=== PATIENT | female | born 1990 | race Caucasian/White ===

== ENCOUNTER 2019-01-10 16:42 | Emergency (ER) | payer OTHER, SELFPAY ==
--- NOTE | 2019-01-10 18:06 | RAD REPORT ---
EXAM DESCRIPTION: US - OB Limited - 01/10/2019 5:58 pm CLINICAL HISTORY: , pelvic pain COMPARISON: None. FINDINGS: A single cephalic presenting gestation is identified. Limited examination was requested. A natomy is grossly normal and as expected for 18 week gestational age. Heart rate was 130 BPM. measurements are as follows: BPD:4.12 Centimeters 18 weeks 3 days HC:15.31 Centimeters 18 weeks 2 days AC:12.68 Centimeters 18 weeks 2 days HL:2.61 Centimeters 18 weeks 1 day FL:2.66 Centimeters 18 weeks 1 day The estimated gestational age (EGA) is 18 weeks 2 days with an ALDEN of 06/11/2019. ratios are n ormal or within acceptable limits. The placenta is grade 0, anterior in location. No low-lying or monroe centa previa. The amniotic fluid volume is normal. Neither ovary was identifiable. No adnexal mass identifiable. IMPRESSION: 1. Single cephalic gestation with an EGA of 18 weeks 2 days and an ALDEN of the 06/11/2019 . 2. No abnormalities are identifiable. Limited OB examination was requested. Anatomy is as expec akosua for 18 weeks age. 3. Grade 0, anterior placenta with no low-lying or placenta previa. 4. Amniotic fluid volume is normal.
--- NOTE | 2019-01-10 18:18 | EDPHYS ---
Physician Documentation [facility] Name: Maryellen Mooney Age: 28 yrs Sex: Female : 1990 Arrival Date: 01/10/2019 Time: 16:46 Bed 15 Private MD: ED Physician Andrew De La Garza HPI: 01/10 18:16 This 28 yrs old Female presents to ER via Ambulatory with complaints of 18 snw wks , Abdominal Pain. 18:16 The patient presents with abdominal pain in the left upper quadrant. Onset: The snw symptoms/episode began/occurred gradually, 2 week(s) ago, and became persistent. The symptoms do not radiate. Associated signs and symptoms: none. The symptoms are described as constant. Severity of pain: At its worst the pain was moderate. It is unknown whether or not the patient has had similar symptoms in the past. + care, no vaginal bleeding. 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 - Social history:: Smoking status: Patient uses tobacco products, smokes one-half pack cigarettes per day. - Ebola Screening: : No symptoms or risks identified at this time. ROS: 18:15 Constitutional: Negative for fever, chills, and weight loss, Eyes: Negative for injury, snw pain, redness, and discharge, ENT: Negative for injury, pain, and discharge, Neck: Negative for injury, pain, and swelling, Cardiovascular: Negative for chest pain, palpitations, and edema, Respiratory: Negative for shortness of breath, cough, wheezing, and pleuritic chest pain, Back: Negative for injury and pain, : Negative for injury, bleeding, discharge, and swelling, MS/Extremity: Negative for injury and deformity, Skin: Negative for injury, rash, and discoloration, Neuro: Negative for headache, weakness, numbness, tingling, and seizure. 18:15 Abdomen/GI: Positive for abdominal pain, of the left upper quadrant. Exam: 18:15 Constitutional: This is a well developed, well nourished patient who is awake, alert, snw and in no acute distress. Head/Face: Normocephalic, atraumatic. Eyes: Pupils equal round and reactive to light, extra-ocular motions intact. Lids and lashes normal. Conjunctiva and sclera are non-icteric and not injected. Cornea within normal limits. Periorbital areas with no swelling, redness, or edema. ENT: Nares patent. No nasal discharge, no septal abnormalities noted. Tympanic membranes are normal and external auditory canals are clear. Oropharynx with no redness, swelling, or masses, exudates, or evidence of obstruction, uvula midline. Mucous membranes moist. Neck: Trachea midline, no thyromegaly or masses palpated, and no cervical lymphadenopathy. Supple, full range of motion without nuchal rigidity, or vertebral point tenderness. No Meningismus. Chest/axilla: Normal chest wall appearance and motion. Nontender with no deformity. No lesions are appreciated. Cardiovascular: Regular rate and rhythm with a normal S1 and S2. No gallops, murmurs, or rubs. Normal PMI, no JVD. No pulse deficits. Respiratory: Lungs have equal breath sounds bilaterally, clear to auscultation and percussion. No rales, rhonchi or wheezes noted. No increased work of breathing, no retractions or nasal flaring. Back: No spinal tenderness. No costovertebral tenderness. Full range of motion. Skin: Warm, dry with normal turgor. Normal color with no rashes, no lesions, and no evidence of cellulitis. MS/ Extremity: Pulses equal, no cyanosis. Neurovascular intact. Full, normal range of motion. Neuro: Awake and alert, GCS 15, oriented to person, place, time, and situation. Cranial nerves II-XII grossly intact. Motor strength 5/5 in all extremities. Sensory grossly intact. Cerebellar exam normal. Normal gait. 18:15 Abdomen/GI: Inspection: gravid appearance, is noted, Bowel sounds: normal, Palpation: mild abdominal tenderness, in the left upper quadrant, no appreciated organomegaly. Vital Signs: 16:57 BP 115 / 77; Pulse 88; Resp 16; Pulse Ox 97% on R/A; dh3 16:58 Weight 81.65 kg (R); Height 5 ft. 1 in. (154.94 cm) (R); Pain 7/10; aa5 18:00 BP 114 / 75; Pulse 88; Resp 16 S; Pulse Ox 97% on R/A; jl7 16:58 Body Mass Index 34.01 (81.65 kg, 154.94 cm) aa5 MDM: 17:12 Patient medically screened. marcio 01/11 00:55 Data reviewed: vital signs, nurses notes, radiologic studies, ultrasound. Data snw interpreted: telemetry monitor: Pulse oximetry:. Counseling: I had a detailed discussion with the patient and/or guardian regarding: the historical points, exam findings, and any diagnostic results supporting the discharge/admit diagnosis, the need for outpatient follow up, to return to the emergency department if symptoms worsen or persist or if there are any questions or concerns that arise at home. Special discussion: Based on the patient's Hx, exam, and Dx evaluation, there is no indication for emergent surgery or inpatient Tx. It is understood by the patient/guardian that if the Sx's persist or worsen they need to return immediately for re-evaluation. Based on the history and exam findings, there is no indication for further emergent testing or inpatient evaluation. I discussed with the patient/guardian the need to see the OB Gyne specialist for further evaluation of the symptoms. Medical screen evaluation completed. EMTALA emergency medical condition absent. 01/10 18:34 Order name: Urine Dipstick--Ancillary (enter results) bd 01/10 17:15 Order name: OB Limited; Complete Time: 18:10 snw Administered Medications: No medications were administered Disposition: 01/10/19 18:17 Discharged to Home. Impression: Upper abdominal pain, unspecified. - Condition is Stable. - Discharge Instructions: Abdominal Pain During , Colic, and Smoking, Second Trimester of , Empw-ii-Wxfy, Eating Plan for Women. - Prescriptions for Vitamin 27- 0.8 mg Oral Tablet - take 1 tablet by ORAL route once daily; 60 tablet. - Medication Reconciliation Form, Thank You Letter, Antibiotic Education, Prescription Opioid Use form. - Follow up: Private Physician; When: 2 - 3 days; Reason: Recheck today's complaints, Continuance of care, Re-evaluation by your physician. Follow up: Emergency Department; When: As needed; Reason: Worsening of condition. Signatures: Dispatcher [employer] Andrew Valdes MD MD cha Therrien, Shelly, CHEST PAINTING AND SEALING SUPERVISOR-C CHEST PAINTING AND SEALING SUPERVISOR-Csnw Julieta Montalvo, RN RN aa5 Dulce Toney RN RN jl7 Corrections: (The following items were deleted from the chart) 01/10 18:39 18:17 01/10/2019 18:17 Discharged to Home. Impression: Upper abdominal pain, jl7 unspecified. Condition is Stable. Forms are Medication Reconciliation Form, Thank You Letter, Antibiotic Education, Prescription Opioid Use. Follow up: Private Physician; When: 2 - 3 days; Reason: Recheck today's complaints, Continuance of care, Re-evaluation by your physician. Follow up: Emergency Department; When: As needed; Reason: Worsening of condition. snw
--- NOTE | 2019-01-10 18:18 | ER ---
Nurse's Notes [facility] Name: Maryellen Mooney Age: 28 yrs Sex: Female : 1990 Arrival Date: 01/10/2019 Time: 16:46 Bed 15 Private MD: Diagnosis: Upper abdominal pain, unspecified Presentation: 01/10 16:55 Presenting complaint: Patient states: LUQ pain that began 2 weeks ago, nausea, denies aa5 vomiting, denies vaginal bleeding. Reports being 18 weeks . 16:55 Transition of care: patient was not received from another setting of care. Onset of aa5 symptoms was December 2018. Risk Assessment: Do you want to hurt yourself or someone else? Patient reports no desire to harm self or others. Care prior to arrival: None. 16:55 Method Of Arrival: Ambulatory aa5 16:55 Acuity: HOMERO 3 aa5 17:57 Initial Sepsis Screen: Does the patient meet any 2 criteria? No. Patient's initial jl7 sepsis screen is negative. Does the patient have a suspected source of infection? No. Patient's initial sepsis screen is negative. 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 - Social history:: Smoking status: Patient uses tobacco products, smokes one-half pack cigarettes per day. - Ebola Screening: : No symptoms or risks identified at this time. Screenin:00 Abuse screen: Denies threats or abuse. Denies injuries from another. Nutritional jl7 screening: No deficits noted. Tuberculosis screening: No symptoms or risk factors identified. Fall Risk None identified. Assessment: 17:00 General: Appears in no apparent distress. uncomfortable, Behavior is calm, cooperative, jl7 appropriate for age. Pain: Complains of pain in left upper quadrant Pain currently is 7 out of 10 on a pain scale. Neuro: Level of Consciousness is awake, alert, obeys commands, Oriented to person, place, time, situation. Cardiovascular: Patient's skin is warm and dry. Respiratory: Airway is patent Respiratory effort is even, unlabored, Respiratory pattern is regular, symmetrical. GI: Bowel sounds present X 4 quads. Abd is soft and non tender. : Urine is cloudy, Denies burning with urination. EENT: No signs and/or symptoms were reported regarding the EENT system. Derm: Skin is pink, warm \T\ dry. Musculoskeletal: No signs and/or symptoms reported regarding the musculoskeletal system. 18:00 Reassessment: Patient appears in no apparent distress at this time. Patient and/or jl7 family updated on plan of care and expected duration. Pain level reassessed. Patient is alert, oriented x 3, equal unlabored respirations, skin warm/dry/pink. Vital Signs: 16:57 BP 115 / 77; Pulse 88; Resp 16; Pulse Ox 97% on R/A; dh3 16:58 Weight 81.65 kg (R); Height 5 ft. 1 in. (154.94 cm) (R); Pain 7/10; aa5 18:00 BP 114 / 75; Pulse 88; Resp 16 S; Pulse Ox 97% on R/A; jl7 16:58 Body Mass Index 34.01 (81.65 kg, 154.94 cm) aa5 ED Course: 16:46 Patient arrived in ED. mr 16:52 Arm band placed on Patient placed in an exam room, on a stretcher. aa5 16:53 Clare [facility] F[facility]-C [facility]. snw 16:53 Andrew De La Garza MD is Attending Physician. snw 16:57 Dulce Toney RN is Primary Nurse. jl7 16:57 Triage completed. aa5 17:00 Patient has correct armband on for positive identification. Bed in low position. Call jl7 light in reach. Side rails up X 1. 17:17 Patient taken to ultrasound. via wheelchair. junior 17:30 Patient moved back from ultrasound. junior 17:58 US OB Limited In Process Unspecified. EDMS 18:30 Urine collected: clean catch specimen, cloudy. dh3 18:38 No provider procedures requiring assistance completed. Patient did not have IV access jl during this emergency room visit. Administered Medications: No medications were administered Outcome: 18:17 Discharge ordered by . snw 18:38 Discharged to home ambulatory. jl7 18:38 Condition: stable 18:38 Discharge instructions given to patient, family, Instructed on discharge instructions, follow up and referral plans. medication usage, Demonstrated understanding of instructions, follow-up care, medications, Prescriptions given X 1. 18:39 Patient left the ED. jl7 Signatures: Dispatcher [employer] EDMS Clare Ward, RADHA-C FISH AGENT-Rj SilveraDenise mr MontalvoJulieta, RN RN aa5 aKle Dunbar jd, Jahala, RN RN jl7 Vanessa Hinojosa [facility]
[2019-01-10 18:45] VITALS: O2SAT 97
[2019-01-10 18:47] VITALS: BP 114/75
[2019-01-10 20:30] LABS: Urine Blood NEGATIVE (NEG); Urine Glucose NEGATIVE (NEG); Urine Protein NEGATIVE (NEG); Urine pH 6.5 (5.0-7.0)
== END 2019-01-10 18:39 | disposition home or self-care (01) ==
LOC: ER 16:42
DX: O26.892 Other specified pregnancy related conditions, second trimester (principal); O99.332 Smoking (tobacco) complicating pregnancy, second trimester; F17.210 Nicotine dependence, cigarettes, uncomplicated; Z3A.18 18 weeks gestation of pregnancy; Z91.02 Food additives allergy status; Z91.030 Bee allergy status
CPT/HCPCS: 76815; 81003; 99284

== ENCOUNTER 2019-03-01 15:56 | Emergency (ER) | payer OTHER ==
--- OUTSIDE RECORDS SUMMARY | 2019-03-01 15:58 | XMS REPORT ---
:1990 [facility] [address] [place] [address] Care Team Providers Name Role Phone Unavailable Unavailable Unavailable Payers Payer Name Policy Type Policy Number Effective Date Expiration Date Problems This patient has no known problems. Allergies, Adverse Reactions, Alerts This patient has no known allergies or adverse reactions. Medications This patient has no known medications. Results Test Description Test Time Test Comments Text Results Atomic Results Result Comments - US 2019-01-21 Patient Name: UMU KNOWLES Unit No: [id number] PREG 09:37:00 EXAMS: CPT CODE: AFTER [id number] PREG AFTER 1ST [facility] [address] [place] [address]'[facility] [address] [place], [place] [address] OBSTETRICAL ULTRASOUND REPORT Pat. Name: UMU KNOWLES Pat. No: [id number] Study Date: 01/21/2019 8:05am , Age: 11 1990, 28 Pregnancies: 2, Para 1 LMP: 09/07/2018 GA by LMP: 19w3d GA by US: 19w5d GA Selected: 19w5d (From Known E) ALDEN: 06/12/2019 Referring MD: Tavares Subramanian Tinsmith Helper: Rosemarie Cosme RDMS CPT4: [id number] Admitting MD: MARILYNN CHAPIN Hist/Ind: Scan 1: Anatomy MEASUREMENTS AGE GROWTH EVALUATION Measurement GA Range Srce %for GA Ratios ----- ---- ------- BPD 4.8 cm 20w4d (79r6r-87r4h) Hadl BPD 74% FL/BPD 0.67 HC 17.4 cm 19w6d (17a0r-21w6s) Hadl HC 53% FL/AC 0.23 APD 4.3 cm APD HC/AC 1.24 (1.06 - 1.25) TAD 4.6 cm TAD CI 0.83 (0.70 - 0.86) AC 14.0 cm 19w0d (65m2v-37b4v) Hadl AC 35% FL 3.2 cm 19w4d (09e6q-85c7q) Hadl FL 47% HL 3.4 cm 21w4d (41x9m-91n1u) Waldo HL 81% GA for sonogram 19w5d (03w6u-04g3x) Weight Estimate: based on (BPD,HC,AC,FL) Hadlock Weight: 308 gm (263-353) Hadlock : 0lbs, 10oz Cervical Length: 3.1 cm Heart Rate: 142 bpm MATERNAL ANATOMY Ovaries LxHxW (cm) Right 2.1 x 1.3 x 1.4 Vol: 2.0cc Left 2.1 x 1.3 x 2.3 Vol: 3.3cc CLINICAL SUMMARY Type of Gestation: Amaro Intrauterine in variable presentation. size is appropriate for gestational age by weight. motion and organs seen: heart motion seen somatic activity observed body and limb movements seen Four chamber heart observed Left ventricular outflow tract (LVOT) seen Right ventricular outflow tract (RVOT) seen [facility] NAME: UMU KNOWLES Radiology Department PHYS: Marilynn Jha DO [address] : 1990 AGE: 28 SEX: F [place], [place] [address] LOC: DaryRAD PHONE #: [phone] EXAM DATE: 01/21/2019 STATUS: REG CLI FAX #: [phone] RAD NO: Page 1 Signed Report (CONTINUED) Patient Name: ELENIUMU Unit No: [id number] EXAMS: CPT CODE: [id number] US PREG AFTER TRI [id number] <Continued> Normal intracranial anatomy seen Umbilical cord insertion in fetus seen stomach, Renal Fossa, Bladder and Spine seen Three vessel umbilical cord noted abnormalities observed: None seen at this exam Placental location: Anterior Placental maturity : Grade 1 There is no evidence of placenta previa. Amniotic fluid volume is normal. Uterus and adnexa: No significant abnormalities seen Thank you for allowing us to participate in the care of this patient. Satish Xiao M.D. Electronic Signature 01/21/2019 09:37am at 0937 Reported and signed by: Satish Xiao MD CC: Marilynn Chapin DO Technologist: Rosemarie Cosme RDMS Probe: Trnscrbd D/ ([id number]) [email or web address] Orig Print D/T: S: 01/21/2019 (936) [facility] NAME: KNOWLESUMU Radiology Department PHYS: MARY LOUALTAGRACIA Ford TavaresMarilynn olguin DO [address] : 1990 AGE: 28 SEX: F [place] [address] LOC: DaryRAD PHONE #: [phone] EXAM DATE: 01/21/2019 STATUS: REG CLI FAX #: [phone] RAD NO: Page 2 Signed Report Patient Name: UMU KNOWLES Unit No: [id number] EXAMS: CPT CODE: [id number] US PREG AFTER 1ST TRI [id number] <Continued> [facility] NAME: UMU KNOWLES Radiology Department PHYS: Marilynn Jha DO [address] : 1990 AGE: 28 SEX: F [place] [address] LOC: DaryRAD PHONE #: [phone] EXAM DATE: 01/21/2019 STATUS: REG CLI FAX #: [phone] RAD NO: Page 3 Signed Report
[2019-03-01] MEDS ORDERED: ALBUTEROL 2.5 MG/3 ML NEB SOL ONE (17:10)
--- NOTE | 2019-03-01 17:35 | EDPHYS ---
Physician Documentation [facility] Name: Maryellen Mooney Age: 28 yrs Sex: Female : 1990 Arrival Date: 03/01/2019 Time: 16:00 Bed 12 Private MD: None, None ED Physician Andrew De La Garza HPI: 03/01 17:09 This 28 yrs old Female presents to ER via Ambulatory with complaints of kb Cough, Chest Congestion. 17:09 The patient or guardian reports cough, that is intermittent, described as moderate, kb with no sputum. Onset: The symptoms/episode began/occurred 1 month(s) ago, and became worse. Severity of symptoms: At their worst the symptoms were moderate, in the emergency department the symptoms are unchanged. Modifying factors: The symptoms are alleviated by nothing, the symptoms are aggravated by nothing. Associated signs and symptoms: The patient has no apparent associated signs or symptoms. The patient has experienced similar episodes in the past, a few times. The patient has not recently seen a physician. Pt reports cough for a month and congestion that has been getting worse. . Historical: - Allergies: 16:03 Bees; sv 16:03 Red Dye; sv - PMHx: 16:03 Asthma; Bipolar disorder; sv - PSHx: 16:03 ; sv - Immunization history:: Adult Immunizations up to date. - Social history:: Smoking status: Patient/guardian denies using tobacco. - Ebola Screening: : Patient denies travel to an Ebola-affected area in the 21 days before illness onset. ROS: 17:04 Constitutional: Negative for fever, chills, and weight loss, Cardiovascular: Negative kb for chest pain, palpitations, and edema, Abdomen/GI: Negative for abdominal pain, nausea, vomiting, diarrhea, and constipation, Back: Negative for injury and pain, MS/Extremity: Negative for injury and deformity, Skin: Negative for injury, rash, and discoloration, Neuro: Negative for headache, weakness, numbness, tingling, and seizure. 17:04 ENT: Positive for sinus congestion. 17:04 Respiratory: Positive for cough, wheezing, Negative for dyspnea on exertion, hemoptysis, orthopnea, pleurisy, shortness of breath. Exam: 17:04 Constitutional: This is a well developed, well nourished patient who is awake, alert, kb and in no acute distress. Head/Face: Normocephalic, atraumatic. Chest/axilla: Normal chest wall appearance and motion. Nontender with no deformity. No lesions are appreciated. Cardiovascular: Regular rate and rhythm with a normal S1 and S2. No gallops, murmurs, or rubs. Normal PMI, no JVD. No pulse deficits. Abdomen/GI: Soft, non-tender, with normal bowel sounds. No distension or tympany. No guarding or rebound. No evidence of tenderness throughout. Back: No spinal tenderness. No costovertebral tenderness. Full range of motion. Skin: Warm, dry with normal turgor. Normal color with no rashes, no lesions, and no evidence of cellulitis. MS/ Extremity: Pulses equal, no cyanosis. Neurovascular intact. Full, normal range of motion. Neuro: Awake and alert, GCS 15, oriented to person, place, time, and situation. Cranial nerves II-XII grossly intact. Motor strength 5/5 in all extremities. Sensory grossly intact. Cerebellar exam normal. Normal gait. 17:04 Respiratory: the patient does not display signs of respiratory distress, Respirations: normal, Breath sounds: wheezing: expiratory that is moderate, is scattered. Vital Signs: 16:03 BP 133 / 79; Pulse 96; Resp 18; Temp 98.4(O); Pulse Ox 97% ; Weight 84.82 kg; Height 5 sv ft. 1 in. (154.94 cm); 16:03 Body Mass Index 35.33 (84.82 kg, 154.94 cm) sv MDM: 16:46 Patient medically screened. kb 17:09 Data reviewed: vital signs, nurses notes. Data interpreted: Pulse oximetry: on room air kb is 97 %. Interpretation: normal. 17:33 Counseling: I had a detailed discussion with the patient and/or guardian regarding: the kb historical points, exam findings, and any diagnostic results supporting the discharge/admit diagnosis, lab results, radiology results, the need for outpatient follow up, a family practitioner, to return to the emergency department if symptoms worsen or persist or if there are any questions or concerns that arise at home. ED course: Lungs clear bilaterally after treatment. 03/01 17:03 Order name: Urine Dipstick--Ancillary (enter results) 03/01 17:04 Order name: Urine Dipstick-Ancillary EDMS 03/01 16:49 Order name: Chest Pa And Lat (2 Views) XRAY kb 03/01 16:49 Order name: Urine Dipstick-Ancillary (obtain specimen); Complete Time: 17:07 kb Administered Medications: 17:01 Drug: Albuterol 2.5 mg Route: Inhalation; aj1 Disposition: 03/02 06:43 Co-signature as Attending Physician, Andrew De La Garza MD I agree with the assessment and [facility] plan of care. Disposition: 03/01/19 17:34 Discharged to Home. Impression: Bronchitis, not specified as acute or chronic, Asthma. - Condition is Stable. - Discharge Instructions: Acute Bronchitis, Girl-od-Bcak, Asthma, Adult, Aagx-gc-Imyq. - Prescriptions for Zithromax Z- Leonardo 250 mg Oral Tablet - take 1 tablet by ORAL route as directed for 5 days Day 1 - take two (2) tablets one time. Day 2, 3, 4 , 5 take one (1) tablet once daily.; 6 tablet. Albuterol Sulfate 90 mcg/actuation - inhale 1-2 puff by INHALATION route every 4-6 hours; 1 Inhaler. - Medication Reconciliation Form, Thank You Letter, Antibiotic Education, Prescription Opioid Use form. - Follow up: Emergency Department; When: As needed; Reason: Worsening of condition. Follow up: Private Physician; When: 2 - 3 days; Reason: Recheck today's complaints, Continuance of care, Re-evaluation by your physician. Signatures: Dispatcher [employer] [facility] Helene Dinero, TECHNICAL SUPPORT SPECIALIST-C TECHNICAL SUPPORT SPECIALIST-Luz Velez RN RN aj1 Edie Farmer RN RN sv Anderson, Corey, MD MD [facility] Corrections: (The following items were deleted from the chart) 03/01 18:04 17:34 03/01/2019 17:34 Discharged to Home. Impression: Bronchitis, not specified as aj1 acute or chronic; Asthma. Condition is Stable. Forms are Medication Reconciliation Form, Thank You Letter, Antibiotic Education, Prescription Opioid Use. Follow up: Emergency Department; When: As needed; Reason: Worsening of condition. Follow up: Private Physician; When: 2 - 3 days; Reason: Recheck today's complaints, Continuance of care, Re-evaluation by your physician. kb
--- NOTE | 2019-03-01 17:35 | ER ---
Nurse's Notes [facility] [place] Name: Maryellen Mooney Age: 28 yrs Sex: Female : 1990 Arrival Date: 03/01/2019 Time: 16:00 Bed 12 Private MD: None, None Diagnosis: Bronchitis, not specified as acute or chronic;Asthma Presentation: 03/01 16:02 Presenting complaint: Patient states: cough x 1 month, congestion started yesterday. Pt sv is 25 wks . Transition of care: patient was not received from another setting of care. Onset of symptoms was January 2019. Care prior to arrival: None. 16:02 Method Of Arrival: Ambulatory sv 16:02 Acuity: HOMERO 4 sv 18:04 Risk Assessment: Do you want to hurt yourself or someone else? Patient reports no aj1 desire to harm self or others. Initial Sepsis Screen: Does the patient meet any 2 criteria? No. Patient's initial sepsis screen is negative. Does the patient have a suspected source of infection? No. Patient's initial sepsis screen is negative. Triage Assessment: 16:04 General: Appears in no apparent distress. uncomfortable, well developed, Behavior is sv calm, cooperative, appropriate for age. Neuro: Level of Consciousness is awake, alert, obeys commands, Oriented to person, place, time, situation, Gait is steady. Respiratory: Reports cough that is non-productive, congestion Respiratory effort is even, unlabored, Respiratory pattern is regular, symmetrical. Historical: - Allergies: 16:03 Bees; sv 16:03 Red Dye; sv - PMHx: 16:03 Asthma; Bipolar disorder; sv - PSHx: 16:03 ; sv - Immunization history:: Adult Immunizations up to date. - Social history:: Smoking status: Patient/guardian denies using tobacco. - Ebola Screening: : Patient denies travel to an Ebola-affected area in the 21 days before illness onset. Screenin:10 Abuse screen: Denies threats or abuse. Denies injuries from another. Nutritional aj1 screening: No deficits noted. Tuberculosis screening: No symptoms or risk factors identified. 18:03 Fall Risk None identified. aj1 Assessment: 17:10 General: Appears in no apparent distress. uncomfortable, Behavior is calm, cooperative, aj1 appropriate for age. Pain: Complains of pain in right lateral posterior chest Pain does not radiate. Pain currently is 6 out of 10 on a pain scale. at worst was 8 out of 10 on a pain scale. Quality of pain is described as aching, Aggravated by increased activity. Neuro: Level of Consciousness is awake, alert, obeys commands, Oriented to person, place, time, situation. Cardiovascular: Patient's skin is warm and dry. Respiratory: Reports cough that is persistent Airway is patent Respiratory effort is even, unlabored, Respiratory pattern is regular, symmetrical. GI: No signs and/or symptoms were reported involving the gastrointestinal system. : No signs and/or symptoms were reported regarding the genitourinary system. EENT: Reports nasal congestion nasal discharge. Derm: No signs and/or symptoms reported regarding the dermatologic system. Skin is normal. Musculoskeletal: No signs and/or symptoms reported regarding the musculoskeletal system. Circulation, motion, and sensation intact. 18:03 Reassessment: Patient appears in no apparent distress at this time. No changes from aj1 previously documented assessment. Patient and/or family updated on plan of care and expected duration. Pain level reassessed. Patient is alert, oriented x 3, equal unlabored respirations, skin warm/dry/pink. Vital Signs: 16:03 BP 133 / 79; Pulse 96; Resp 18; Temp 98.4(O); Pulse Ox 97% ; Weight 84.82 kg; Height 5 sv ft. 1 in. (154.94 cm); 16:03 Body Mass Index 35.33 (84.82 kg, 154.94 cm) sv ED Course: 16:00 Patient arrived in ED. dl4 16:00 None, None is Private Physician. dl4 16:03 Triage completed. sv 16:04 Arm band placed on. sv 16:45 Helene Dinero FNP-C is PHCP. kb 16:45 Andrew De La Garza MD is Attending Physician. kb 16:52 Luz Morgan, MARCOS is Primary Nurse. aj1 17:10 Patient has correct armband on for positive identification. Bed in low position. Call aj1 light in reach. Side rails up X 1. 17:10 No provider procedures requiring assistance completed. aj1 17:12 Urine Dipstick--Ancillary (enter results) Sent. sv 17:26 X-ray completed. Patient tolerated procedure well. Patient moved back from radiology. ls3 17:34 Chest Pa And Lat (2 Views) XRAY In Process Unspecified. EDMS 18:04 Patient did not have IV access during this emergency room visit. aj1 Administered Medications: 17:01 Drug: Albuterol 2.5 mg Route: Inhalation; aj1 Outcome: 17:34 Discharge ordered by . kb 18:04 Discharged to home ambulatory. aj1 18:04 Condition: good 18:04 Discharge instructions given to patient, Instructed on discharge instructions, follow up and referral plans. medication usage, Demonstrated understanding of instructions, follow-up care, medications, Prescriptions given X 2. 18:04 Patient left the ED. aj1 Signatures: Dispatcher [employer] EDNC Helene Dinero, RADHA-C SWITCHBOARD OPERATOR-Luz Velez RN RN aj1 Edie Farmer, MARCOS RN Andria Noguera ls3 Michael Atkins dl4
--- NOTE | 2019-03-01 17:39 | RAD REPORT ---
EXAM DESCRIPTION: RAD - Chest Pa And Lat (2 Views) - 03/01/2019 5:34 pm CLINICAL HISTORY: r/o pneumonia, shield pt;Cough Chest pain. COMPARISON: CHEST SINGLE VIEW dated 01/05/2016; CHEST PA AND LAT 2 VIEW dated 03/14/2010 FINDINGS: The lungs are clear. The heart is normal in size. No displaced fractures. IMPRESSION: No acute or concerning finding suspected.
[2019-03-01 18:24] VITALS: BP 133/79; TEMP 98.4; O2SAT 97
[2019-03-01 18:46] LABS: Urine Blood TRACE (NEG); Urine Glucose NEGATIVE (NEG); Urine Protein NEGATIVE (NEG); Urine pH 6.5 (5.0-7.0)
== END 2019-03-01 18:04 | disposition home or self-care (01) ==
LOC: ER 15:56
DX: J40 Bronchitis, not specified as acute or chronic (principal); J45.909 Unspecified asthma, uncomplicated; Z91.02 Food additives allergy status; Z91.030 Bee allergy status
CPT/HCPCS: 71046; 81003; 99284

== ENCOUNTER 2019-03-13 12:09 | Emergency (ER) | payer OTHER ==
--- OUTSIDE RECORDS SUMMARY | 2019-03-13 12:11 | XMS REPORT ---
:1990 [facility] Address [address] [place] [address] Care Team Providers Name Role Phone Unavailable [...] 2019-01-21 Patient Name: UMU KNOWLES Unit No: [id number] PREG 09:37:00 EXAMS: CPT CODE: AFTER [id number] PREG AFTER 1ST TRI [address] [place] [address]'[facility] TRI [address] [place], [place] [address] OBSTETRICAL ULTRASOUND REPORT Pat. Name: UMU KNOWLES Pat. No: [id number] Study Date: 01/21/2019 8:05am , Age: 11 1990, 28 Pregnancies: 2, Para 1 LMP: 09/07/2018 GA by LMP: 19w3d GA by US: 19w5d GA Selected: 19w5d (From Known E) ALDEN: 06/12/2019 Referring MD: Tavares Subramanian Residential Property Tax Appraiser: Rosemarie Cosme RDMS CPT4: [id number] Admitting MD: MARILYNN CHAPIN Hist/Ind: Scan 1: Anatomy MEASUREMENTS AGE GROWTH EVALUATION Measurement GA Range Srce %for GA Ratios ----- ---- ------- BPD 4.8 cm 20w4d (75c3x-86h0c) Hadl BPD 74% FL/BPD 0.67 HC 17.4 cm 19w6d (22p9j-49o7m) Hadl HC 53% FL/AC 0.23 APD 4.3 cm APD HC/AC 1.24 (1.06 - 1.25) TAD 4.6 cm TAD CI 0.83 (0.70 - 0.86) AC 14.0 cm 19w0d (20s2w-26o7l) Hadl AC 35% FL 3.2 cm 19w4d (02o7c-84x2v) Hadl FL 47% HL 3.4 cm 21w4d (24r0h-30k3k) Waldo HL 81% GA for sonogram 19w5d (51s3l-95g5q) Weight Estimate: based on (BPD,HC,AC,FL) Hadlock Weight: [...] Right ventricular outflow tract (RVOT) seen [facility] NAME: UMU KNOWLES Radiology Department PHYS: ATIYA ForbesmanMarilynn DO [address] : 1990 AGE: 28 SEX: [place], [place] [address] LOC: DaryRAD PHONE #: [phone] EXAM DATE: 01/21/2019 STATUS: REG CLI FAX #: [phone] RAD NO: Page 1 Signed Report (CONTINUED) Patient Name: UMU KNOWLES Unit No: [id number] EXAMS: CPT CODE: [id number] US PREG AFTER TRI 54685 <Continued> Normal intracranial anatomy seen Umbilical cord [...] (936) [email or web address] Orig Print D/T: S: 01/21/2019 (37) [facility] NAME: KNOWLESUMU Radiology Department PHYS: Marilynn Jha DO [address] : 1990 AGE: 28 SEX: F [place] [address] LOC: DaryRAD PHONE #: [phone] EXAM DATE: 01/21/2019 STATUS: REG CLI FAX #: [phone] RAD NO: Page 2 Signed Report Patient Name: UMU KNOWLES Unit No: [id number] EXAMS: CPT CODE: [id number] US PREG AFTER TRI 40141 <Continued> [facility] NAME: UMU KNOWLES Radiology Department PHYS: Marilynn Jha DO [address] : 1990 AGE: 28 SEX: F [place] [address] LOC: Dary[facility] PHONE #: [phone] EXAM DATE: 01/21/2019 STATUS: REG CLI FAX #: [phone] RAD NO: Page 3 Signed Report
[2019-03-13] MEDS ORDERED: IPRATROPIUM BROM 0.5MG/2.5ML ONE (13:01)
[2019-03-13] MEDS ORDERED: ALBUTEROL 2.5 MG/3 ML NEB SOL ONE (13:01)
--- NOTE | 2019-03-13 13:51 | RAD REPORT ---
EXAM DESCRIPTION: RAD - Chest Pa And Lat (2 Views) - 03/13/2019 1:29 pm CLINICAL HISTORY: shield pt;Chest pain Chest pain. COMPARISON: Chest Pa And Lat (2 Views) dated 03/01/2019; CHEST SINGLE VIEW dated 01/05/2016; CHEST PA AND LAT 2 VIEW dated 03/14/2010 FINDINGS: The lungs are clear. The heart is normal in size. No displaced fractures. IMPRESSION: No acute or concerning finding suspected.
--- NOTE | 2019-03-13 13:58 | EDPHYS ---
Physician Documentation [facility] Name: Maryellen Mooney Age: 28 yrs Sex: Female : 1990 Arrival Date: 03/13/2019 Time: 12:10 Bed 17 Private MD: ED Physician Chalo Sibley HPI: 03/13 13:35 This 28 yrs old Female presents to ER via Ambulatory with complaints of kb Cough, Rib Pain. 13:35 The patient or guardian reports cough, that is intermittent, described as moderate, kb with no sputum. Onset: The symptoms/episode began/occurred last week. Severity of symptoms: At their worst the symptoms were mild, moderate, in the emergency department the symptoms are unchanged. Modifying factors: The symptoms are alleviated by nothing, the symptoms are aggravated by nothing. Associated signs and symptoms: Pertinent positives: chest pain, with cough, with movement, with breathing, Pertinent negatives: diarrhea, ear ache, fever, nausea, rhinorrhea, sore throat, vomiting. The patient has not experienced similar symptoms in the past. The patient has been recently seen at the [facility] Emergency Department, a couple of weeks ago, cough, congestion, wheezing, asthma exacerbation. 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 - Social history:: Smoking status: Patient uses tobacco products, smokes .25 packs per day. - Ebola Screening: : Patient negative for fever greater than or equal to 101.5 degrees Fahrenheit, and additional compatible Ebola Virus Disease symptoms Patient denies exposure to infectious person Patient denies travel to an Ebola-affected area in the 21 days before illness onset No symptoms or risks identified at this time. ROS: 13:34 Constitutional: Negative for fever, chills, and weight loss, Neck: Negative for injury, kb pain, and swelling, Abdomen/GI: Negative for abdominal pain, nausea, vomiting, diarrhea, and constipation, Back: Negative for injury and pain, : Negative for injury, bleeding, discharge, and swelling, MS/Extremity: Negative for injury and deformity, Skin: Negative for injury, rash, and discoloration, Neuro: Negative for headache, weakness, numbness, tingling, and seizure. 13:34 Cardiovascular: Positive for chest pain, with cough, with movement, of the left breast. 13:34 Respiratory: Positive for cough, with no reported sputum, Negative for dyspnea on exertion, hemoptysis, orthopnea, pleurisy, shortness of breath, sputum production, wheezing. Exam: 13:34 Constitutional: This is a well developed, well nourished patient who is awake, alert, kb and in no acute distress. Head/Face: Normocephalic, atraumatic. ENT: Nares patent. No nasal discharge, no septal abnormalities noted. Tympanic membranes are normal and external auditory canals are clear. Oropharynx with no redness, swelling, or masses, exudates, or evidence of obstruction, uvula midline. Mucous membranes moist. Neck: Trachea midline, no thyromegaly or masses palpated, and no cervical lymphadenopathy. Supple, full range of motion without nuchal rigidity, or vertebral point tenderness. No Meningismus. Chest/axilla: Normal chest wall appearance and motion. Nontender with no deformity. No lesions are appreciated. Cardiovascular: Regular rate and rhythm with a normal S1 and S2. No gallops, murmurs, or rubs. Normal PMI, no JVD. No pulse deficits. Respiratory: Lungs have equal breath sounds bilaterally, clear to auscultation and percussion. No rales, rhonchi or wheezes noted. No increased work of breathing, no retractions or nasal flaring. Abdomen/GI: Soft, non-tender, with normal bowel sounds. No distension or tympany. No guarding or rebound. No evidence of tenderness throughout. Skin: Warm, dry with normal turgor. Normal color with no rashes, no lesions, and no evidence of cellulitis. MS/ Extremity: Pulses equal, no cyanosis. Neurovascular intact. Full, normal range of motion. Neuro: Awake and alert, GCS 15, oriented to person, place, time, and situation. Cranial nerves II-XII grossly intact. Motor strength 5/5 in all extremities. Sensory grossly intact. Cerebellar exam normal. Normal gait. Vital Signs: 12:35 BP 105 / 70; Pulse 96; Resp 20; Temp 99.0(O); Pulse Ox 96% on R/A; Weight 84.82 kg; em Height 5 ft. 1 in. (154.94 cm); Pain 10/10; 13:00 BP 105 / 75; Pulse 95; Resp 18; Pulse Ox 99% on R/A; em 12:35 Body Mass Index 35.33 (84.82 kg, 154.94 cm) em MDM: 12:27 Patient medically screened. kb 13:35 Data reviewed: vital signs, nurses notes. Data interpreted: Pulse oximetry: on room air kb is 96 %. Interpretation: normal. Counseling: I had a detailed discussion with the patient and/or guardian regarding: the historical points, exam findings, and any diagnostic results supporting the discharge/admit diagnosis, radiology results, the need for outpatient follow up, a family practitioner, to return to the emergency department if symptoms worsen or persist or if there are any questions or concerns that arise at home. 03/13 12:40 Order name: Chest Pa And Lat (2 Views) XRAY; Complete Time: 13:57 kb Administered Medications: 12:54 Drug: Albuterol 2.5 mg Route: Inhalation; iw 12:54 Drug: AtroVENT Aerosol 0.5 mg Route: Inhalation; iw 14:06 Drug: Tylenol 1000 mg Route: PO; em 14:10 Follow up: Response: Medication administered at discharge. em Disposition: 03/13/19 13:57 Discharged to Home. Impression: Cough, Pleurisy. - Condition is Stable. - Discharge Instructions: Cough, Adult, Lsgo-ji-Pand, Pleurisy, Ypvx-hz-Yuor. - Prescriptions for Albuterol Sulfate 90 mcg/actuation - inhale 1-2 puff by INHALATION route every 4-6 hours; 1 Inhaler. - Medication Reconciliation Form, Thank You Letter, Antibiotic Education, Prescription Opioid Use, Work release form form. - Follow up: Emergency Department; When: As needed; Reason: Worsening of condition. Follow up: Private Physician; When: 2 - 3 days; Reason: Recheck today's complaints, Continuance of care, Re-evaluation by your physician. Signatures: Dispatcher [employer] Helene Moore, BELLA GARCIA-Delano Kebede, WORKERS COMPENSATION CLAIMS SUPERVISOR WORKERS COMPENSATION CLAIMS SUPERVISOR em Kristin White, RN RN iw Corrections: (The following items were deleted from the chart) 14:22 13:57 03/13/2019 13:57 Discharged to Home. Impression: Cough; Pleurisy. Condition is em Stable. Forms are Medication Reconciliation Form, Thank You Letter, Antibiotic Education, Prescription Opioid Use. Follow up: Emergency Department; When: As needed; Reason: Worsening of condition. Follow up: Private Physician; When: 2 - 3 days; Reason: Recheck today's complaints, Continuance of care, Re-evaluation by your physician. kb
--- NOTE | 2019-03-13 13:58 | ER ---
Nurse's Notes [facility] Name: Maryellen Mooney Age: 28 yrs Sex: Female : 1990 Arrival Date: 03/13/2019 Time: 12:10 Bed 17 Private MD: Diagnosis: Cough;Pleurisy Presentation: 03/13 12:33 Presenting complaint: Patient states: seen here 2 weeks ago, diagnosed with bronchitis, em symptoms have not improved, complains of rib pain lesley. sides, unknown fever. Transition of care: patient was not received from another setting of care. Onset of symptoms was February 27, 2019. Risk Assessment: Do you want to hurt yourself or someone else? Patient reports no desire to harm self or others. Initial Sepsis Screen: Does the patient meet any 2 criteria? No. Patient's initial sepsis screen is negative. Does the patient have a suspected source of infection? No. Patient's initial sepsis screen is negative. Care prior to arrival: None. 12:33 Method Of Arrival: Ambulatory em 12:46 Acuity: HOMERO 4 iw Triage Assessment: 12:35 General: Appears in no apparent distress. comfortable, Behavior is calm, cooperative. em Pain: Complains of pain in diaphragm Pain currently is 10 out of 10 on a pain scale. 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 - Social history:: Smoking status: Patient uses tobacco products, smokes .25 packs per day. - Ebola Screening: : Patient negative for fever greater than or equal to 101.5 degrees Fahrenheit, and additional compatible Ebola Virus Disease symptoms Patient denies exposure to infectious person Patient denies travel to an Ebola-affected area in the 21 days before illness onset No symptoms or risks identified at this time. Screenin:35 Abuse screen: Denies threats or abuse. Nutritional screening: No deficits noted. em Tuberculosis screening: No symptoms or risk factors identified. Fall Risk None identified. Assessment: 12:35 General: Appears in no apparent distress. comfortable, Behavior is calm, cooperative. em Pain: Complains of pain in diaphragm. Neuro: Level of Consciousness is awake, alert, obeys commands, Oriented to person, place, time, situation. Cardiovascular: Heart tones S1 S2 present Capillary refill < 3 seconds Patient's skin is warm and dry. Respiratory: Reports shortness of breath on exertion cough that is productive, pain with cough Airway is patent Respiratory effort is even, unlabored, Respiratory pattern is regular, symmetrical, Breath sounds are clear bilaterally. EENT: Throat is clear is pink. Derm: Skin is intact, is healthy with good turgor, Skin is pink, warm \T\ dry. Musculoskeletal: Capillary refill < 3 seconds, Range of motion: intact in all extremities. 13:00 Reassessment: Patient appears in no apparent distress at this time. Patient and/or em family updated on plan of care and expected duration. Pain level reassessed. Patient is alert, oriented x 3, equal unlabored respirations, skin warm/dry/pink. Vital Signs: 12:35 BP 105 / 70; Pulse 96; Resp 20; Temp 99.0(O); Pulse Ox 96% on R/A; Weight 84.82 kg; em Height 5 ft. 1 in. (154.94 cm); Pain 10/10; 13:00 BP 105 / 75; Pulse 95; Resp 18; Pulse Ox 99% on R/A; em 12:35 Body Mass Index 35.33 (84.82 kg, 154.94 cm) em ED Course: 12:10 Patient arrived in ED. as 12:25 Delano Lyons LVN is Primary Nurse. em 12:26 Helene Dinero FNP-C is PHCP. kb 12:26 Chalo Sibley MD is Attending Physician. kb 12:35 Arm band placed on. em 12:35 Patient has correct armband on for positive identification. Bed in low position. Call em light in reach. Side rails up X2. Pulse ox on. NIBP on. 12:46 Triage completed. iw 13:29 Chest Pa And Lat (2 Views) XRAY In Process Unspecified. EDMS 14:19 No provider procedures requiring assistance completed. Patient did not have IV access em during this emergency room visit. Administered Medications: 12:54 Drug: Albuterol 2.5 mg Route: Inhalation; iw 12:54 Drug: AtroVENT Aerosol 0.5 mg Route: Inhalation; iw 14:06 Drug: Tylenol 1000 mg Route: PO; em 14:10 Follow up: Response: Medication administered at discharge. em Outcome: 13:57 Discharge ordered by . kb 14:19 Discharged to home ambulatory. em 14:19 Condition: good 14:19 Discharge instructions given to patient, Instructed on discharge instructions, follow up and referral plans. medication usage, Demonstrated understanding of instructions, follow-up care, medications, Prescriptions given X 1. 14:22 Patient left the ED. em Signatures: Dispatcher [employer] EDHelene Dillon, MEDICAL TERRITORY MANAGER-C MEDICAL TERRITORY MANAGER-Delano Kebede, ACCOUNT RECEIVABLE ASSOCIATE ACCOUNT RECEIVABLE ASSOCIATE Anya Leyva Irene, RN RN iw
[2019-03-13] MEDS ORDERED: ACETAMINOPHEN 500 MG TAB ONE (14:13)
[2019-03-13 14:27] VITALS: TEMP 99
[2019-03-13 14:28] VITALS: BP 105/75; O2SAT 99
== END 2019-03-13 14:22 | disposition home or self-care (01) ==
LOC: ER 12:09
DX: R09.1 Pleurisy (principal); F17.210 Nicotine dependence, cigarettes, uncomplicated; F31.9 Bipolar disorder, unspecified; Z91.02 Food additives allergy status; Z91.030 Bee allergy status
CPT/HCPCS: 71046

== ENCOUNTER 2019-04-09 15:41 | Emergency (ER) | payer OTHER ==
--- OUTSIDE RECORDS SUMMARY | 2019-04-09 15:43 | XMS REPORT ---
:1990 [facility] Address [address] [place] [address] Care Team Providers Name Role Phone Unavailable [...] 2019-01-21 Patient Name: UMU KNOWLES Unit No: [id number] PREG 09:37:00 EXAMS: CPT CODE: AFTER [id number] US PREG AFTER 1ST TRI [address] [place] [address]'[facility] TRI [address] [place], [place] [address] OBSTETRICAL ULTRASOUND REPORT Pat. Name: UMU KNOWLES Pat. No: [id number] Study Date: 01/21/2019 8:05am , Age: 11 1990, 28 Pregnancies: 2, Para 1 LMP: 09/07/2018 GA by LMP: 19w3d GA by US: 19w5d GA Selected: 19w5d (From Known E) ALDEN: 06/12/2019 Referring MD: Tavares Subramanian Retail Team Leader: Rosemarie Cosme RDMS CPT4: [id number] Admitting MD: MARILYNN CHAPIN Hist/Ind: Scan 1: Anatomy MEASUREMENTS AGE GROWTH EVALUATION Measurement GA Range Srce %for GA Ratios ----- ---- ------- BPD 4.8 cm 20w4d (40q2r-98g3r) Hadl BPD 74% FL/BPD 0.67 HC 17.4 cm 19w6d (36f9u-93x2o) Hadl HC 53% FL/AC 0.23 APD 4.3 cm APD HC/AC 1.24 (1.06 - 1.25) TAD 4.6 cm TAD CI 0.83 (0.70 - 0.86) AC 14.0 cm 19w0d (25g7v-45x6g) Hadl AC 35% FL 3.2 cm 19w4d (48g9i-10e8c) Hadl FL 47% HL 3.4 cm 21w4d (11x6a-86q9n) Waldo HL 81% GA for sonogram 19w5d (79q6d-77z9g) Weight Estimate: based on (BPD,HC,AC,FL) Hadlock Weight: [...] Right ventricular outflow tract (RVOT) seen [facility] NAME: UMU KNOWLES Radiology Department PHYS: Marilynn Jha DO [address] : 1990 AGE: 28 SEX: F [place], [place] [address] LOC: Dary[facility] PHONE #: [phone] EXAM DATE: 01/21/2019 STATUS: REG CLI FAX #: [phone] RAD NO: Page 1 Signed Report (CONTINUED) Patient Name: CAMERON KNOWLESN Unit No: [id number] EXAMS: CPT CODE: [id number] US PREG AFTER TRI 501[address] <Continued> Normal intracranial anatomy seen Umbilical cord [...] in the care of this patient. Satish iXao M.D. Electronic Signature 01/21/2019 09:37am at 0937 Reported and signed by: Satish Xiao MD CC: Marilynn Chapin DO Technologist: Rosemarie Cosme RDMS Probe: Trnscrbd D/ (936) [email or web address] Orig Print D/T: S: 01/21/2019 (936) [facility] [place] [facility] NAME: ELENIUMU Radiology Department PHYS: Marilynn Jha DO [address] : 1990 AGE: 28 SEX: F [place] [address] LOC: Dary[facility] PHONE #: [phone] EXAM DATE: 01/21/2019 STATUS: REG CLI FAX #: [phone] RAD NO: Page 2 Signed Report Patient Name: UMU KNOWLES Unit No: [id number] EXAMS: CPT CODE: [id number] US PREG AFTER 1ST TRI [address] <Continued> [facility] NAME: UMU KNOWLES Radiology Department PHYS: Marilynn Jha DO [address] : 1990 AGE: 28 SEX: F [place] [address] LOC: Dary[facility] PHONE #: [phone] EXAM DATE: 01/21/2019 STATUS: REG CLI FAX #: [phone] RAD NO: Page 3 Signed Report
[2019-04-09] MEDS ORDERED: LEVALBUTEROL 1.25 MG/3 ML NEB ONE (18:07)
[2019-04-09 18:35] LABS: Protime INR 0.96
[2019-04-09 18:36] LABS: Absolute Lymphocytes (CBC) 2.9 K/uL (0.7-4.9); Absolute Monocytes 0.8 K/uL (0.1-1.3); Basophils % 0.1 % (0-1.3); Eosinophils % 1.3 % (0-4.4); Hematocrit 32.3 % (36.0-45.0); Lymphocytes % 22.4 % (15.3-44.8); MPV 8.9 fL (7.6-11.3); Monocytes % 6.1 % (3.3-12.3); RBC Red Blood Cell Count 3.67 M/uL (3.86-4.86)
[2019-04-09 18:43] LABS: BUN Blood Urea Nitrogen 4 mg/dL (7-18); Bicarbonate 22 mmol/L (21-32); Glucose Level 119 mg/dL (74-106); Potassium 3.5 mmol/L (3.5-5.1); Sodium Level 138 mmol/L (136-145)
[2019-04-09] MEDS ORDERED: NA CHLORIDE 0.9% 0 ML ONE (18:55)
--- NOTE | 2019-04-09 18:56 | RAD REPORT ---
EXAM DESCRIPTION: US - Extrem Venous W Compress Rocco - 04/09/2019 6:44 pm CLINICAL HISTORY: Pain;Swelling Bilateral leg edema and swelling. COMPARISON: Extremity Venous Uni Ltd dated 01/12/2018 TECHNIQUE: Real-time sonographic interrogation of the left and right lower extremity deep venous sys tems was performed. FINDINGS: Normal compressibility, flow augmentation, phasic flow and spontaneous flow is identified in both the left and right lower extremity deep venous systems. IMPRESSION: No sonographic evidence of left or right lower extremity deep venous thrombosis.
--- NOTE | 2019-04-09 19:12 | RAD REPORT ---
EXAM DESCRIPTION: RAD - Chest Single View - 04/09/2019 7:03 pm CLINICAL HISTORY: SOB Chest pain. COMPARISON: Chest Pa And Lat (2 Views) dated 03/13/2019; Chest Pa And Lat (2 Views) dated 03/01/2019; CHEST SINGLE VIEW dated 01/05/2016; CHEST PA AND LAT 2 VIEW dated 03/14/2010 FINDINGS: Portable technique limits examination quality. The lungs are grossly clear. The heart is normal in size. No displaced fractures. IMPRESSION: No acute intrathoracic process suspected.
[2019-04-09] MEDS ORDERED: NA CHLORIDE 0.9% 1,000 ML ONE (19:30)
--- NOTE | 2019-04-09 19:47 | ER ---
Nurse's Notes [facility] Name: Maryellen Mooney Age: 28 yrs Sex: Female : 1990 Arrival Date: 04/09/2019 Time: 15:43 Bed 13 Private MD: Diagnosis: Unspecified asthma with (acute) exacerbation Presentation: 04/09 16:21 Presenting complaint: Patient states: I am seven months , recently recovered la1 from bronchitis. I have been feeling more SOB while at work, the AC is not working there and I got really hot and SOB. Transition of care: patient was not received from another setting of care. Onset of symptoms was April 09, 2019. Risk Assessment: Do you want to hurt yourself or someone else? Patient reports no desire to harm self or others. Initial Sepsis Screen: Does the patient meet any 2 criteria? No. Patient's initial sepsis screen is negative. Does the patient have a suspected source of infection? No. Patient's initial sepsis screen is negative. Care prior to arrival: None. 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 - Social history:: Smoking status: Patient uses tobacco products, denies chronic smoking, but will smoke occasionally. - Ebola Screening: : No symptoms or risks identified at this time. Screenin:00 Abuse screen: Denies threats or abuse. Nutritional screening: No deficits noted. aa5 Tuberculosis screening: No symptoms or risk factors identified. Fall Risk None identified. Assessment: 17:00 General: Appears comfortable, Behavior is calm, cooperative. Pain: Complains of pain in aa5 left lateral aspect of chest only with cough, pt states "my left ribs" Pain does not radiate. Pain currently is 0 out of 10 on a pain scale. Quality of pain is described as aching. Neuro: Level of Consciousness is awake, alert, obeys commands, Oriented to person, place, time, situation. Cardiovascular: Heart tones S1 S2 present Rhythm is regular. Respiratory: Reports shortness of breath Airway is patent Respiratory effort is even, unlabored, Respiratory pattern is regular, symmetrical, Breath sounds with wheezes bilaterally. GI: No signs and/or symptoms were reported involving the gastrointestinal system. : No signs and/or symptoms were reported regarding the genitourinary system. EENT: Reports nasal congestion. Derm: Skin is pink, warm \\T\\ dry. Musculoskeletal: Range of motion: intact in all extremities. 18:00 Reassessment: Patient is alert, oriented x 3, equal unlabored respirations, skin aa5 warm/dry/pink. US at bedside . 19:10 General: Appears in no apparent distress. comfortable, Behavior is calm, cooperative, tl2 appropriate for age. Pain: Denies pain. Neuro: Level of Consciousness is awake, alert, obeys commands, Oriented to person, place, time, situation. Cardiovascular: Denies chest pain, Rhythm is sinus rhythm. Respiratory: Reports shortness of breath cough that is Airway is patent Respiratory effort is even, unlabored, Respiratory pattern is regular, symmetrical, Breath sounds are clear bilaterally. GI: No signs and/or symptoms were reported involving the gastrointestinal system. : No signs and/or symptoms were reported regarding the genitourinary system. Derm: Skin is pink, warm \\T\\ dry. 19:10 Reassessment: pt verbalized understanding of discharge instructions, need for follow up tl2 and prescription usage. Vital Signs: 16:21 BP 140 / 81; Pulse 105; Resp 16; Temp 97.6; Pulse Ox 98% on R/A; Weight 83.46 kg; la1 Height 5 ft. 1 in. (154.94 cm); 17:03 BP 119 / 62; Pulse 72; Resp 18 S; Pulse Ox 96% on R/A; aa5 18:00 BP 105 / 69; Pulse 84; Resp 18 S; Pulse Ox 99% on Nebulizer Mask; aa5 19:04 BP 123 / 76 Supine (man/reg); Pulse 82; Pulse Ox 95% ; jp3 19:06 BP 129 / 75 Sitting (auto/reg); Pulse 116; Pulse Ox 95% on R/A; jp3 19:08 BP 129 / 76 Standing (/reg); Pulse 102; Pulse Ox 96% ; jp3 19:20 BP 129 / 76; Pulse 95; Resp 20; Pulse Ox 97% on R/A; tl2 20:03 BP 122 / 83; Pulse 84; Resp 20; Pulse Ox 98% on R/A; tl2 16:21 Body Mass Index 34.77 (83.46 kg, 154.94 cm) la1 19:04 slight lightheadness jp3 19:06 slight headedness (better than supine) jp3 19:08 slightheadness (best of all positions) jp3 Vitals: 19:20 Heart Tones 145. tl2 ED Course: 15:43 Patient arrived in ED. rg4 16:03 Clare Ward FNP-C is PHCP. snw 16:03 Andrew De La Garza MD is Attending Physician. snw 16:21 Arm band placed on left wrist. la1 16:22 Triage completed. la1 16:53 Julieta Montalvo RN is Primary Nurse. aa5 17:00 Patient has correct armband on for positive identification. Bed in low position. Call aa5 light in reach. Side rails up X 1. 17:23 Andrew Jimenez PA is PHCP. cp 17:23 Andrew De La Garza MD is Attending Physician. cp 18:20 Ultrasound completed. Patient tolerated well. sg3 18:20 Initial lab(s) drawn, by me, sent to lab. Inserted saline lock: 22 gauge in right jp3 antecubital area, using aseptic technique. Blood collected. 18:43 US Extremity Venous W Compression Rocco In Process Unspecified. EDMS 19:04 XRAY Chest (1 view) In Process Unspecified. EDMS 19:05 Report given to MARCOS Dasilva. aa5 19:21 Urine collected: clean catch specimen, clear, jerome colored, Amount Voided: 90mL. jp3 19:48 EKG done, by ED staff, reviewed by Andrew FLOYD. jp3 20:03 No provider procedures requiring assistance completed. IV discontinued, intact, tl2 bleeding controlled, No redness/swelling at site. Pressure dressing applied. Administered Medications: 17:55 Drug: Xopenex (3) 1.25 mg Route: Inhalation; aa5 19:20 Drug: NS 0.9% 500 ml Route: IV; Rate: bolus; Site: left antecubital; tl2 20:06 Follow up: IV Status: Completed infusion; IV Intake: 300ml tl2 19:20 Drug: NS 0.9% 500 ml Route: IV; Rate: bolus; Site: left antecubital; tl2 20:05 Follow up: IV Status: Completed infusion tl2 Intake: 20:06 IV: 300ml; Total: 300ml. tl2 Outcome: 19:46 Discharge ordered by . luis 20:03 Discharged to home ambulatory. tl2 20:03 Condition: stable 20:03 Discharge instructions given to patient, Instructed on discharge instructions, follow up and referral plans. medication usage, Demonstrated understanding of instructions, follow-up care, medications, Prescriptions given X 3. 20:06 Patient left the ED. tl2 Signatures: Dispatcher [employer] EDMS Clare Ward, SHANIKAC CHIEF INFORMATION OFFICER-Csnw Julieta Montalvo RN RN aa5 Juvencio Guajardo RN RN la1 Andrew Jimenez PA PA cp Knox, Taylor, RN RN tl2 Lauren Abraham4 Bettina Rossi3 Nitesh Lutz jp3 Corrections: (The following items were deleted from the chart) 16:59 16:21 Presenting complaint: Patient states: I am seven weeks , recently la1 recovered from bronchitis. I have been feeling more SOB while at work, the AC is not working there and I got really hot and SOB la1 18:03 18:00 General: Appears comfortable, Behavior is calm, cooperative, aa5 aa5 18:03 18:00 Pain: Complains of pain in left lateral aspect of chest only with cough, pt aa5 states "my left ribs" Pain does not radiate. Pain currently is 0 out of 10 on a pain scale. Quality of pain is described as aching, aa5 18:03 18:00 Neuro: Level of Consciousness is awake, alert, obeys commands, Oriented to aa5 person, place, time, situation, aa5 18:03 18:00 Cardiovascular: Heart tones S1 S2 present Rhythm is regular aa5 aa5 18:03 18:00 Respiratory: Reports shortness of breath Airway is patent Respiratory effort is aa5 even, unlabored, Respiratory pattern is regular, symmetrical, Breath sounds with wheezes bilaterally. aa5 18:03 18:00 GI: No signs and/or symptoms were reported involving the gastrointestinal system. aa5 aa5 18: 18:00 : No signs and/or symptoms were reported regarding the genitourinary system. aa5aa5 18: 18:00 EENT: Reports nasal congestion aa5 aa5 18: 18:00 Derm: Skin is pink, warm \\T\\ dry. aa5 [facility] 18: 18:00 Musculoskeletal: Range of motion: intact in all extremities, 5 aa 19:34 18:00 Reassessment: Patient is alert, oriented x 3, equal unlabored respirations, skin 5 warm/dry/pink. [facility] 19:37 19:20 BP 129 / 76; tl2 tl2
--- NOTE | 2019-04-09 19:47 | EDPHYS ---
Physician Documentation [facility] Name: Maryellen Mooney Age: 28 yrs Sex: Female : 1990 Arrival Date: 04/09/2019 Time: 15:43 Bed 13 Private MD: ED Physician Andrew De La Garza HPI: 04/09 17:45 This 28 yrs old Female presents to ER via Ambulatory with complaints of cp Shortness Of Breath, 7 months . 17:45 The patient has shortness of breath with light activity. Onset: The symptoms/episode cp began/occurred today. Duration: The symptoms are continuous. The patient's shortness of breath is aggravated by light activity. Associated signs and symptoms: Pertinent positives: productive cough, Pertinent negatives: chest pain, diaphoresis, fever, vomiting, syncope. Severity of symptoms: in the emergency department the symptoms have improved mildly. The patient has experienced similar episodes in the past, history of asthma and bronchitis. 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 - Social history:: Smoking status: Patient uses tobacco products, denies chronic smoking, but will smoke occasionally. - Ebola Screening: : No symptoms or risks identified at this time. ROS: 17:50 Constitutional: Negative for body aches, chills, fever, poor PO intake. cp 17:50 Eyes: Negative for injury, pain, redness, and discharge. cp 17:50 ENT: Negative for drainage from ear(s), ear pain, sore throat, difficulty swallowing, difficulty handling secretions. 17:50 Cardiovascular: Negative for chest pain, edema, palpitations. 17:50 Respiratory: Positive for cough, shortness of breath, Negative for wheezing. 17:50 Abdomen/GI: Negative for abdominal pain, nausea, vomiting, and diarrhea. 17:50 Back: Negative for pain at rest, pain with movement, radiated pain. 17:50 : Negative for urinary symptoms, vaginal bleeding, vaginal discharge. 17:50 Skin: Negative for rash. 17:50 Neuro: Negative for altered mental status, headache, syncope, weakness. 17:50 All other systems are negative. Exam: 18:00 Constitutional: The patient appears in no acute distress, alert, awake, cp non-diaphoretic, non-toxic, well developed, well nourished. 18:00 Head/Face: Normocephalic, atraumatic. cp 18:00 Eyes: Periorbital structures: appear normal, Conjunctiva: normal, no exudate, no injection, Sclera: no appreciated abnormality, Lids and lashes: appear normal, bilaterally. 18:00 ENT: External ear(s): are unremarkable, Ear canal(s): are normal, clear, TM's: bulging, is not appreciated, bilaterally, dullness, bilaterally, erythema, is not appreciated, bilaterally, Nose: is normal, Mouth: Lips: moist, Oral mucosa: pink and intact, moist, Posterior pharynx: is normal, airway is patent, no erythema, no exudate. 18:00 Neck: ROM/movement: is normal, is supple, without pain, no range of motions limitations, no meningismus, no nuchal rigidity, Lymph nodes: no appreciated lymphadenopathy. 18:00 Chest/axilla: Inspection: normal, Palpation: is normal, no crepitus, no tenderness. 18:00 Cardiovascular: Rate: tachycardic, Rhythm: regular, Edema: is not appreciated, JVD: is not appreciated. 18:00 Respiratory: the patient does not display signs of respiratory distress, Respirations: normal, no use of accessory muscles, no retractions, no splinting, no tachypnea, labored breathing, is not present, Breath sounds: are clear throughout, no decreased breath sounds, no stridor, no wheezing. 18:00 Abdomen/GI: Inspection: gravid appearance, is noted, Bowel sounds: active, all quadrants, Palpation: abdomen is soft and non-tender, in all quadrants. 18:00 Back: pain, is absent, ROM is normal. 18:00 Skin: cellulitis, is not appreciated, no rash present. 18:00 Neuro: Orientation: to person, place \T\ time. Mentation: is normal, Cerebellar function: is grossly normal, Motor: moves all fours, strength is normal. 19:50 ECG was reviewed by the Attending Physician. cp Vital Signs: 16:21 BP 140 / 81; Pulse 105; Resp 16; Temp 97.6; Pulse Ox 98% on R/A; Weight 83.46 kg; la1 Height 5 ft. 1 in. (154.94 cm); 17:03 BP 119 / 62; Pulse 72; Resp 18 S; Pulse Ox 96% on R/A; aa5 18:00 BP 105 / 69; Pulse 84; Resp 18 S; Pulse Ox 99% on Nebulizer Mask; aa5 19:04 BP 123 / 76 Supine (man/reg); Pulse 82; Pulse Ox 95% ; jp3 19:06 BP 129 / 75 Sitting (auto/reg); Pulse 116; Pulse Ox 95% on R/A; jp3 19:08 BP 129 / 76 Standing (/reg); Pulse 102; Pulse Ox 96% ; jp3 19:20 BP 129 / 76; Pulse 95; Resp 20; Pulse Ox 97% on R/A; tl2 20:03 BP 122 / 83; Pulse 84; Resp 20; Pulse Ox 98% on R/A; tl2 16:21 Body Mass Index 34.77 (83.46 kg, 154.94 cm) la1 19:04 slight lightheadness jp3 19:06 slight headedness (better than supine) jp3 19:08 slightheadness (best of all positions) jp3 MDM: 17:23 Patient medically screened. cp 19:45 Antibiotic administration: Not indicated, the patient's primary pathology is reactive cp airway disease. 19:45 Data reviewed: vital signs, nurses notes, lab test result(s), EKG, radiologic studies, cp plain films, and as a result, I will discharge patient. Test interpretation: by ED physician or midlevel provider: ECG, chest xray negative for infiltrates. Counseling: I had a detailed discussion with the patient and/or guardian regarding: the historical points, exam findings, and any diagnostic results supporting the discharge/admit diagnosis, lab results, radiology results, the need for outpatient follow up, an OB/Gyne specialist, to return to the emergency department if symptoms worsen or persist or if there are any questions or concerns that arise at home, smoking cessation. Response to treatment: the patient's symptoms have markedly improved after treatment, and as a result, I will discharge patient. 04/09 18:00 Order name: CBC with Diff; Complete Time: 18:59 cp 04/09 18:58 Interpretation: Normal except: WBC 12.8; RBC 3.67; HGB 11.1; HCT 32.3; NEUT A 9.0. cp 04/09 18:00 Order name: BMP; Complete Time: 18:59 cp 04/09 18:00 Order name: D-Dimer; Complete Time: 18:59 cp 04/09 18:59 Interpretation: D-DIMER 1026; Reviewed. 04/09 18:00 Order name: PT-INR; Complete Time: 18:59 cp 04/09 19:11 Order name: Urine Microscopic Only 04/09 20:03 Order name: Urine Dipstick--Ancillary (enter results) 04/09 17:37 Order name: US Extremity Venous W Compression Rocco; Complete Time: 18:59 cp 04/09 18:59 Interpretation: Report reviewed. 04/09 17:57 Order name: Orthostatics; Complete Time: 19:12 cp 04/09 18:00 Order name: EKG; Complete Time: 18:01 cp 04/09 18:42 Order name: XRAY Chest (1 view); Complete Time: 19:41 cp 04/09 19:41 Interpretation: Report review. 04/09 20:03 Order name: Urine --Ancillary (enter results) 04/09 18:00 Order name: EKG - Nurse/Tech; Complete Time: 19:33 cp 04/09 18:02 Order name: FHT's; Complete Time: 19:38 cp 04/09 19:11 Order name: Urine Dipstick-Ancillary (obtain specimen); Complete Time: 19:20 cp 04/09 19:11 Order name: Urine Test (obtain specimen); Complete Time: 19:20 cp EC:50 Rate is 81 beats/min. Rhythm is regular. OH interval is normal. QRS interval is normal. cp QT interval is normal. Interpreted by me. Reviewed by me. Administered Medications: 17:55 Drug: Xopenex (3) 1.25 mg Route: Inhalation; aa5 19:20 Drug: NS 0.9% 500 ml Route: IV; Rate: bolus; Site: left antecubital; tl2 20:06 Follow up: IV Status: Completed infusion; IV Intake: 300ml tl2 19:20 Drug: NS 0.9% 500 ml Route: IV; Rate: bolus; Site: left antecubital; tl2 20:05 Follow up: IV Status: Completed infusion tl2 Disposition: 04/09/19 19:46 Discharged to Home. Impression: Unspecified asthma with (acute) exacerbation. - Condition is Stable. - Discharge Instructions: Asthma, Adult. - Prescriptions for Albuterol Sulfate 2.5 mg /3 mL (0.083 %) Inhalation Solution for Nebulization - inhale 1 unit by NEBULIZATION route every 8 hours As needed; 1 box. Albuterol Sulfate 90 mcg/actuation - inhale 1-2 puff by INHALATION route every 4-6 hours; 1 Inhaler. - Medication Reconciliation Form, Thank You Letter, Antibiotic Education, Prescription Opioid Use form. 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 - Problem is an acute exacerbation. - Symptoms have improved. Addendum: 04/12/2019 08:38 Co-signature as Attending Physician, Andrew De La Garza MD I agree with the assessment and c mace plan of care. Signatures: Dispatcher [employer] EDMS Andrew De La Garza MD MD cha Calderon, Audri, RN RN aa5 Juvencio Guajardo RN RN la1 Andrew Jimenez PA PA cp Knox, Taylor RN RN tl2 Corrections: (The following items were deleted from the chart) 04/09 20:06 19:46 04/09/2019 19:46 Discharged to Home. Impression: Unspecified asthma with (acute) tl2 exacerbation. Condition is Stable. Forms are Medication Reconciliation Form, Thank You Letter, Antibiotic Education, Prescription Opioid Use. 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 Problem is an acute exacerbation. Symptoms have improved. cp
[2019-04-09 20:02] LABS: Urine Bacteria <20 /HPF (<20); Urine Culture Reflex Order NOT NEEDED; Urine RBC NONE SEEN /HPF (NONE SEEN)
[2019-04-09 20:17] LABS: Urine Blood NEGATIVE (NEG); Urine Glucose NEGATIVE (NEG); Urine Protein NEGATIVE (NEG); Urine Specific Gravity 1.015 (1.005-1.030); Urine pH 6.5 (5.0-7.0)
[2019-04-09 20:19] VITALS: TEMP 97.6
[2019-04-09 20:27] VITALS: BP 122/83; O2SAT 98
--- NOTE | 2019-04-10 10:07 | EKG ---
Test Date: 2019-04-09 Test Time: 19:44:43 Human Intelligence: CHARMAINE MEASUREMENT RESULTS: Intervals: Rate: 81 NC: 136 QRSD: 90 QT: 364 QTc: 422 Townsend: P: 42 NC: 136 QRS: 72 T: 25 INTERPRETIVE STATEMENTS: Normal sinus rhythm RSR' or QR pattern in V1 suggests right ventricular conduction delay Borderline ECG Compared to ECG 11/01/2016 05:18:14 RSR' in V1 or V2 now present Incomplete right bundle-branch block no longer present Electronically Signed On 04-10-19 10:05:26 CDT by Lang Olguin
== END 2019-04-09 20:06 | disposition home or self-care (01) ==
LOC: ER 15:41
DX: J45.901 Unspecified asthma with (acute) exacerbation (principal); F31.9 Bipolar disorder, unspecified; Z72.0 Tobacco use
CPT/HCPCS: 36415; 71045; 80048; 81003; 81015; 81025; 85025; 85379; 85610; 93005; 93970; 96360; 99285; J7030

== ENCOUNTER 2019-04-26 23:05 | Emergency (ER) | payer OTHER ==
[2012-03-27 11:54] VITALS: BP 122/81
--- OUTSIDE RECORDS SUMMARY | 2019-04-26 23:07 | XMS REPORT ---
:1990 [facility] Address [address] [place] [address] Care Team Providers Name Role Phone Unavailable [...] 2019-01-21 Patient Name: UMU KNOWLES Unit No: [id number] PREG 09:37:00 EXAMS: CPT CODE: AFTER [id number] PREG AFTER 1ST TRI [id number] [place] [address]'[facility] [address] [place], [place] [address] OBSTETRICAL ULTRASOUND REPORT Pat. Name: UMU KNOWLES Pat. No: [id number] Study Date: 01/21/2019 8:05am , Age: 11 1990, 28 Pregnancies: 2, Para 1 LMP: 09/07/2018 GA by LMP: 19w3d GA by US: 19w5d GA Selected: 19w5d (From Known E) ALDEN: 06/12/2019 Referring MD: Tavares Subramanian [employer] Adjustment Counselor: Rosemarie Cosme RDMS CPT4: [id number] Admitting MD: MARILYNN CHAPIN Hist/Ind: Scan 1: Anatomy MEASUREMENTS AGE GROWTH EVALUATION Measurement GA Range Srce %for GA Ratios ----- ---- ------- BPD 4.8 cm 20w4d ([id number]) Hadl BPD 74% FL/BPD 0.67 HC 17.4 cm 19w6d (96l2y-34d9b) Hadl HC 53% FL/AC 0.23 APD 4.3 cm APD HC/AC 1.24 (1.06 - 1.25) TAD 4.6 cm TAD CI 0.83 (0.70 - 0.86) AC 14.0 cm 19w0d (83g2f-30c7h) Hadl AC 35% FL 3.2 cm 19w4d (14w4s-38a9q) Hadl FL 47% HL 3.4 cm 21w4d (86f0d-03s1j) Waldo HL 81% GA for sonogram 19w5d (92x9q-77h4b) Weight Estimate: based on (BPD,HC,AC,FL) Hadlock Weight: [...] Right ventricular outflow tract (RVOT) seen [facility] NAME: KNOWLESUMU Radiology Department PHYS: Marilynn Jha DO [address] : 1990 AGE: 28 SEX: F [place], [place] [address] LOC: [facility] PHONE #: [phone] EXAM DATE: 01/21/2019 STATUS: REG CLI FAX #: [phone] RAD NO: Page 1 Signed Report (CONTINUED) Patient Name: UMU KNOWLES Unit No: [id number] EXAMS: CPT CODE: [id number] US PREG AFTER TRI [id number] <Continued> Normal intracranial anatomy seen Umbilical cord [...] Orig Print D/T: S: 01/21/2019 (936) [facility] NAME: KNOWLESUMU Radiology Department PHYS: MARY LOUALTAGRACIA Ford TavaresMarilynn olguin DO [address] : 1990 AGE: 28 SEX: F [place] [address] LOC: [facility] PHONE #: [phone] EXAM DATE: 01/21/2019 STATUS: REG CLI FAX #: [phone] RAD NO: Page 2 Signed Report Patient Name: UMU KNOWLES Unit No: [id number] EXAMS: CPT CODE: [id number] US PREG AFTER TRI [id number] <Continued> [facility] NAME: UMU KNOWLES Radiology Department PHYS: Marilynn Jha DO [address] : 1990 AGE: 28 SEX: F [place] [address] LOC: [facility] PHONE #: [phone] EXAM DATE: 01/21/2019 STATUS: REG CLI FAX #: [phone] RAD NO: Page 3 Signed Report
--- NOTE | 2019-04-26 23:59 | ER ---
Nurse's Notes [facility] Name: Maryellen Mooney Age: 28 yrs Sex: Female : 1990 Arrival Date: 04/26/2019 Time: 23:10 Bed 6 Private MD: Diagnosis: Encounter for general adult medical examination without abnormal findings Presentation: 04/26 23:20 Presenting complaint: Patient states: her roommate was diagnosed with MRSA in her bb bloodstream and pt is concerned because she is and has a sore on her tongue which presented approx 2 days ago. Transition of care: patient was not received from another setting of care. Onset of symptoms was April 24, 2019. Risk Assessment: Do you want to hurt yourself or someone else? Patient reports no desire to harm self or others. Initial Sepsis Screen: Does the patient meet any 2 criteria? No. Patient's initial sepsis screen is negative. Does the patient have a suspected source of infection? No. Patient's initial sepsis screen is negative. Care prior to arrival: None. 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 - Social history:: Smoking status: Patient uses tobacco products, smokes one-half pack cigarettes per day. - Ebola Screening: : No symptoms or risks identified at this time. Screenin:30 Abuse screen: Denies threats or abuse. Denies injuries from another. Nutritional lp1 screening: No deficits noted. Tuberculosis screening: No symptoms or risk factors identified. Fall Risk None identified. Assessment: 04/27 00:01 General: Appears in no apparent distress. Behavior is calm. Pain: Denies pain. Neuro: lp1 No deficits noted. Cardiovascular: No deficits noted. Respiratory: No deficits noted. GI: No deficits noted. : No deficits noted. EENT: No deficits noted. Derm: Skin is pink, warm \T\ dry. Musculoskeletal: No deficits noted. Vital Signs: 04/26 23:26 BP 121 / 87; Pulse 100; Resp 16 S; Temp 97.7(O); Pulse Ox 95% on R/A; Weight 85.73 kg bb (R); Height 5 ft. 1 in. (154.94 cm) (R); Pain 0/10; 23:26 Body Mass Index 35.71 (85.73 kg, 154.94 cm) bb ED Course: 23:10 Patient arrived in ED. tayla 23:19 Kiel Palmer PA is PHCP. jrMaribel 23:19 Chalo Sibley MD is Attending Physician. jr8 23:25 Triage completed. bb 23:26 Arm band placed on Patient placed in an exam room, on a stretcher, on pulse oximetry. bb 23:30 No provider procedures requiring assistance completed. Patient did not have IV access lp1 during this emergency room visit. 06 00:01 Carrie Weston, RN is Primary Nurse. lp1 00:02 Patient has correct armband on for positive identification. lp1 Administered Medications: No medications were administered Outcome: 04/26 23:58 Discharge ordered by . jr8 04/27 00:03 Discharged to home ambulatory. lp1 Condition: good Discharge instructions given to patient, Instructed on discharge instructions, follow up and referral plans. Demonstrated understanding of instructions, follow-up care. 00:05 Patient left the ED. lp1 Signatures: Cary Harry Brenda, RN RN bb Carrie Weston, RN RN lp1 Kiel Palmer PA PA jr8 Corrections: (The following items were deleted from the chart) 00:05 00:01 General: Appears in no apparent distress. lp1 lp1
--- NOTE | 2019-04-26 23:59 | EDPHYS ---
Physician Documentation [facility] Name: Maryellen Mooney Age: 28 yrs Sex: Female : 1990 Arrival Date: 04/26/2019 Time: 23:10 Bed 6 Private MD: ED Physician Chalo Sibley HPI: 04/26 23:33 This 28 yrs old Female presents to ER via Ambulatory with complaints of jr8 Exposed to MRSA. 23:33 Onset: The symptoms/episode began/occurred at an unknown time. Associated signs and jr8 symptoms: The patient has no apparent associated signs or symptoms. Modifying factors: The patient symptoms are alleviated by nothing, the patient symptoms are aggravated by nothing. The patient has not experienced similar symptoms in the past. The patient has not recently seen a physician. Patient stated that she is 7 months and is concerned because she has someone living in her house that has an MRSA blood infection currently undergoing antibiotic therapy. Stated that she had been eating and drinking after her. Stated that other than a bump on her tongue she has not other symptoms. Wanted to make sure she was ok . 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 - Social history:: Smoking status: Patient uses tobacco products, smokes one-half pack cigarettes per day. - Ebola Screening: : No symptoms or risks identified at this time. ROS: 23:33 Eyes: Negative for injury, pain, redness, and discharge, ENT: Negative for injury, jr8 pain, and discharge, Neck: Negative for injury, pain, and swelling, Cardiovascular: Negative for chest pain, palpitations, and edema, Respiratory: Negative for shortness of breath, cough, wheezing, and pleuritic chest pain, Abdomen/GI: Negative for abdominal pain, nausea, vomiting, diarrhea, and constipation, Back: Negative for injury and pain, MS/Extremity: Negative for injury and deformity, Skin: Negative for injury, rash, and discoloration, Neuro: Negative for headache, weakness, numbness, tingling, and seizure. Exam: 23:33 Eyes: Pupils equal round and reactive to light, extra-ocular motions intact. Lids and jr8 lashes normal. Conjunctiva and sclera are non-icteric and not injected. Cornea within normal limits. Periorbital areas with no swelling, redness, or edema. ENT: Nares patent. No nasal discharge, no septal abnormalities noted. Tympanic membranes are normal and external auditory canals are clear. Oropharynx with no redness, swelling, or masses, exudates, or evidence of obstruction, uvula midline. Mucous membranes moist. Neck: Trachea midline, no thyromegaly or masses palpated, and no cervical lymphadenopathy. Supple, full range of motion without nuchal rigidity, or vertebral point tenderness. No Meningismus. Cardiovascular: Regular rate and rhythm with a normal S1 and S2. No gallops, murmurs, or rubs. Normal PMI, no JVD. No pulse deficits. Respiratory: Lungs have equal breath sounds bilaterally, clear to auscultation and percussion. No rales, rhonchi or wheezes noted. No increased work of breathing, no retractions or nasal flaring. Abdomen/GI: Soft, non-tender, with normal bowel sounds. No distension or tympany. No guarding or rebound. No evidence of tenderness throughout. Back: No spinal tenderness. No costovertebral tenderness. Full range of motion. Skin: Warm, dry with normal turgor. Normal color with no rashes, no lesions, and no evidence of cellulitis. MS/ Extremity: Pulses equal, no cyanosis. Neurovascular intact. Full, normal range of motion. Neuro: Awake and alert, GCS 15, oriented to person, place, time, and situation. Cranial nerves II-XII grossly intact. Motor strength 5/5 in all extremities. Sensory grossly intact. Cerebellar exam normal. Normal gait. Vital Signs: 23:26 BP 121 / 87; Pulse 100; Resp 16 S; Temp 97.7(O); Pulse Ox 95% on R/A; Weight 85.73 kg bb (R); Height 5 ft. 1 in. (154.94 cm) (R); Pain 0/10; 23:26 Body Mass Index 35.71 (85.73 kg, 154.94 cm) arlen MDM: 23:19 Patient medically screened. jr8 23:56 Data reviewed: vital signs, nurses notes, and as a result, I will discharge patient. jr8 Data interpreted: Pulse oximetry: on room air is 95 %. Interpretation: normal. Counseling: I had a detailed discussion with the patient and/or guardian regarding: the historical points, exam findings, and any diagnostic results supporting the discharge/admit diagnosis, the need for outpatient follow up, a family practitioner, to return to the emergency department if symptoms worsen or persist or if there are any questions or concerns that arise at home. ED course: Discussed with patient that her vs are normal. No acute findings on physical exam. Nothing to suggest active MRSA infection. Maintain precautions at home. Patient good with this . Administered Medications: No medications were administered Disposition: 04/27 02:10 Co-signature as Attending Physician, Chalo Sibley MD. rn Disposition: 04/26/19 23:58 Discharged to Home. Impression: Encounter for general adult medical examination without abnormal findings. - Condition is Stable. - Medication Reconciliation Form, Thank You Letter, Antibiotic Education, Prescription Opioid Use form. - Follow up: Private Physician; When: As needed; Reason: Recheck today's complaints, Continuance of care, Re-evaluation by your physician. - Problem is new. - Symptoms have improved. Signatures: Qian Schaefer RN RN bb Nieto, Roman, MD MD rn Pena, Laura, RN RN lp1 Kiel Palmer PA PA jr8 Corrections: (The following items were deleted from the chart) 00:05 04/26 23:58 04/26/2019 23:58 Discharged to Home. Impression: Encounter for general lp1 adult medical examination without abnormal findings. Condition is Stable. Forms are Medication Reconciliation Form, Thank You Letter, Antibiotic Education, Prescription Opioid Use. Follow up: Private Physician; When: As needed; Reason: Recheck today's complaints, Continuance of care, Re-evaluation by your physician. Problem is new. Symptoms have improved. jr8
== END 2019-04-27 00:05 | disposition home or self-care (01) ==
LOC: ER 23:05
DX: O26.893 Other specified pregnancy related conditions, third trimester (principal); Z00.00 Encounter for general adult medical examination without abnormal findings; O99.333 Smoking (tobacco) complicating pregnancy, third trimester; Z91.02 Food additives allergy status; Z91.030 Bee allergy status; Z3A.33 33 weeks gestation of pregnancy
CPT/HCPCS: 99283

== ENCOUNTER 2019-06-03 23:00 | Emergency (ER) | payer OTHER ==
--- OUTSIDE RECORDS SUMMARY | 2019-06-03 23:02 | XMS REPORT ---
:1990 [facility] Address [address] [place] [address] Care Team Providers Name Role Phone Unavailable Unavailable Unavailable Payers Payer Name Policy Type Policy Number Effective Date Expiration Date Problems This patient has no known problems. Allergies, Adverse Reactions, Alerts Allergy Allergy Status Severity Reaction(s) Onset Inactive Treating Comments Name Type Date Date Clinician red dye DA Active SV 2019-05 00:00:0 0 Medications This patient has no known medications. Results Test Description Test Time Test Comments Text Results Atomic Results Result Comments CBC W/AUTO DIFF 2019-05-20 10:36:00 Test Item Value Reference Range Comments WHITE BLOOD CELL (test code=WBC) 8.9 K/mm3 6.6-12.1 RED BLOOD CELL (test code=RBC) 3.63 M/mm3 3.45-5.01 HEMOGLOBIN (test code=HGB) 10.7 g/dL 10.7-13.9 HEMATOCRIT (test code=HCT) 33.3 % 32.1-42.1 MEAN CELL VOLUME (test code=MCV) 92 fL 84.1-94.8 MEAN CELL HGB (test code=MCH) 29.5 pg 27-35 MEAN CELL HGB CONCETRATION (test code=MCHC) 32.1 gm/dL 32.2-34.1 RED CELL DISTRIBUTION WIDTH (test code=RDW) 12.3 % 12.4-16.5 PLATELET COUNT (test code=PLT) 259 K/mm3 133-385 IMMATURE PLATELET FRACTION (test code=IPF) 0.0 % 0.0-10.8 MEAN PLATELET VOLUME (test code=MPV) 10.4 fl 9.1-12.7 NEUTROPHIL % (test code=NT%) 60.5 % 56.5-79.4 LYMPHOCYTE % (test code=LY%) 25.6 % 14.3-34.3 MONOCYTE % (test code=MO%) 8.5 % 5.1-10.4 EOSINOPHIL % (test code=EO%) 4.6 % 0.1-3.0 BASOPHIL % (test code=BA%) 0.2 % 0.1-1.0 NEUTROPHIL # (test code=NT#) 5.4 K/mm3 LYMPHOCYTE # (test code=LY#) 2.3 K/mm3 MONOCYTE # (test code=MO#) 0.8 K/mm3 EOSINOPHIL # (test code=EO#) 0.41 K/mm3 BASOPHIL # (test code=BA#) 0.0 K/mm3 RBC MORPHOLOGY REQUIRED (test code=RBCM) NORMAL NORMAL PLATELET MORPHOLOGY REQUIRED (test code=PLTMR) NORMAL NORMAL PLACENTA THIRD [id number] 13:50:00 RUN DATE: 05/18/19 [facility] PAGE 1 RUN TIME: 1350 Specimen Inquiry RUN USER: INTERFACE PATIENT: UMU KNOWLES LOC: JOANNA U #: [id number] AGE/SX: 28/F ROOM: [facility] REREG DR: Dayton Chapin DO : 89 BED: A DIS: STATUS: ADM IN TLOC: --- --------- SPEC #: [id number] RECD: 05/16/19 STATUS: JOSEP DARDEN #: [id number] TRINIDAD: 05/16/19- SUBM DR: Dayton Chapin DO ENTERED: 05/17/19 SP TYPE: PLACIII OTHR DR: ORDERED: LEVEL V SURGICA CODES: [id number] - PLACENTA, NOS PROCEDURES: LEVEL V SURGICA ( Incomplete) TISSUES: PLACENTA, NOS - PLACENTA CLINICAL HISTORY 28 year old, 36.1 weeks, G2L2, section, prematurity (zahra) FINAL DIAGNOSIS Placenta, 36.1 weeks gestational age, section : - 3rd trimester placenta, 505 gm (75th percentile) - 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 The following attributes are observed: Cord insertion: Marginal Cord length: 36 cm Number of vessels: 3 Cord color: Mccarthy Other cord findings: Less than 12 twists/10 cm surface findings: Steel blue, wrinkled, glistening Vasculature: Displays unremarkable blood vasculature Membranes rupture site: 4 cm to margin Membrane color: Mccarthy Other membrane findings:Thickened The trimmed placental weight: 505 gm Disk measurement: 15 x 14 x3 cm in greatest dimension CONTINUED ON NEXT PAGE RUN DATE: 05/18/19 [facility] PAGE 2 RUN TIME: 1350 Specimen Inquiry RUN USER: INTERFACE -SPEC #: [id number] PATIENT: UMU KNOWLES # [id number] (Continued) GROSS DESCRIPTION (Continued) Accessory lobes: None Maternal surface: Lobulated and intact Parenchyma: Red, beefy, and spongy with peripheral fibrosis Parenchyma lesions: None Cassettes: A1 through A4 jorge 05/17/19 @ 1244 Signed Gia Cheung MD 05/18/19 3930 END OF REPORT CBC W/AUTO [id number] 09:16:00 Test Item Value Reference Range Comments WHITE BLOOD CELL (test code=WBC) 14.7 K/mm3 6.6-12.1 RED BLOOD CELL (test code=RBC) 3.36 M/mm3 3.45-5.01 HEMOGLOBIN (test code=HGB) 9.9 g/dL 10.7-13.9 HEMATOCRIT (test code=HCT) 31.5 % 32.1-42.1 MEAN CELL VOLUME (test code=MCV) 94 fL 84.1-94.8 MEAN CELL HGB (test code=MCH) 29.5 pg 27-35 MEAN CELL HGB CONCETRATION (test code=MCHC) 31.4 gm/dL 32.2-34.1 RED CELL DISTRIBUTION WIDTH (test code=RDW) 12.7 % 12.4-16.5 PLATELET COUNT (test code=PLT) 223 K/mm3 133-385 IMMATURE PLATELET FRACTION (test code=IPF) 0.0 % 0.0-10.8 MEAN PLATELET VOLUME (test code=MPV) 11.9 fl 9.1-12.7 NEUTROPHIL % (test code=NT%) 66.4 % 56.5-79.4 LYMPHOCYTE % (test code=LY%) 23.5 % 14.3-34.3 MONOCYTE % (test code=MO%) 8.1 % 5.1-10.4 EOSINOPHIL % (test code=EO%) 1.0 % 0.1-3.0 BASOPHIL % (test code=BA%) 0.3 % 0.1-1.0 NEUTROPHIL # (test code=NT#) 9.7 K/mm3 LYMPHOCYTE # (test code=LY#) 3.4 K/mm3 MONOCYTE # (test code=MO#) 1.2 K/mm3 EOSINOPHIL # (test code=EO#) 0.14 K/mm3 BASOPHIL # (test code=BA#) 0.0 K/mm3 RBC MORPHOLOGY REQUIRED (test code=RBCM) NORMAL NORMAL PLATELET MORPHOLOGY REQUIRED (test code=PLTMR) NORMAL NORMAL DRUGS OF ABUSE [id number] 12:40:00 Test Item Value Reference Range Comments UR COCAINE (test code=COCAU) NEGATIVE NEGATIVE DETECTION CUT OFF: 150 ng/mL UR CANNABINOIDS (test code=CANU) NEGATIVE NEGATIVE DETECTION CUT OFF: 50 ng/ mL UR AMPHETAMINE (test code=AMPHU) NEGATIVE NEGATIVE DETECTION CUT OFF: 500 ng/mL UR BARBITURATE QUAL (test NEGATIVE NEGATIVE DETECTION CUT OFF: 200 code=BARBQLU) ng/mL UR BENZODIAZEPINE (test NEGATIVE NEGATIVE DETECTION CUT OFF: 150 code=BENZU) ng/mL UR OPIATES QUAL (test NEGATIVE NEGATIVE DETECTION CUT OFF: 100 code=OPIAQLU) ng/mL UR PHENCYCLIDINE (PCP) (test NEGATIVE NEGATIVE DETECTION CUT OFF: 25 ng/mL code=PHENCU) URINALYSIS [id number] 12:11:00 Test Item Value Reference Range Comments UA COLOR (test code=COLU) YELLOW YELLOW UA APPEARANCE (test code=APPU) CLEAR CLEAR UA GLUCOSE DIPSTICK (test code=DGLUU) NEGATIVE NEG UA BILIRUBIN DIPSTICK (test code=BILU) NEGATIVE NEG UA KETONE DIPSTICK (test code=KETU) NEGATIVE NEG UA SPECIFIC GRAVITY (test code=SGU) 1.012 1.001-1.035 UA BLOOD DIPSTICK (test code=ERUM) NEG NEG UA PH DIPSTICK (test code=SEDRICK) 7.0 5-9 UA PROTEIN DIPSTICK (test code=PROU) NEGATIVE NEG UA UROBILINIOGEN DIPSTICK (test code=URO) NEGATIVE mg/dL NEG UA NITRITE DIPSTICK (test code=NAFISA) NEG NEG UA LEUKOCYTE ESTERASE DIPSTICK (test NEG NEG code=LEUU) UA WBC (test code=WBCU) 0-2 #/hpf NONE SEEN UA RBC (test code=RBCU) 0-2 #/hpf NONE SEEN UA EPITHELIAL CELLS (test code=EPIU) RARE #/HPF RARE-FEW UA MUCUS (test code=MUCU) RARE NONE SEEN URINE SAMPLE: CLEAN CATCHAG HEPATITIS B [id number] 08:17:00 Test Item Value Reference Range Comments AG HEPATITIS B SURFACE (test code=HBSAG) NONREACTIVE NONREACTIVE IS CONSENT FORM SIGNED FOR HIV TESTING? YAB HEPATITIS C [id number] 08:17: 00 Test Item Value Reference Range Comments AB HEPATITIS C (test code=HCVAB) NONREACTIVE NONREACTIVE SIGNAL TO CUTOFF (test code=CUTOFF) 0.07 <0.80 IS CONSENT FORM SIGNED FOR HIV TESTING? YAB [id number] 08:17:00 Test Item Value Reference Range Comments AB TREPONEMA (test code=TREPAB) NONREACTIVE NONREACTIVE IS CONSENT FORM SIGNED FOR HIV TESTING? YAB HIV 1 08:17:00 Test Item Value Reference Range Comments AB HIV 1 2 (test NONREACTIVE NONREACTIVE Done by [employer] 4[employer] code=YOC54AT) Gen HIV Ag/Ab Combo Screen IS CONSENT FORM SIGNED FOR HIV TESTING? YAG HEPATITIS B [id number] 07:42: 00 Test Item Value Reference Range Comments AG HEPATITIS B SURFACE (test code=HBSAG) NONREACTIVE NONREACTIVE IS CONSENT FORM SIGNED FOR HIV TESTING? YAB HEPATITIS C [id number] 07:42: 00 Test Item Value Reference Range Comments AB HEPATITIS C (test code=HCVAB) NONREACTIVE SIGNAL TO CUTOFF (test code=CUTOFF) <0.80 IS CONSENT FORM SIGNED FOR HIV TESTING? YAB [id number] 07:42:00 Test Item Value Reference Range Comments AB TREPONEMA (test code=TREPAB) NONREACTIVE NONREACTIVE IS CONSENT FORM SIGNED FOR HIV TESTING? YAB HIV 1 07:42:00 Test Item Value Reference Range Comments AB HIV 1 2 (test code=AEX18CS) NONREACTIVE IS CONSENT FORM SIGNED FOR HIV TESTING? YCBC W/AUTO [id number] 06:54:00 Test Item Value Reference Range Comments WHITE BLOOD CELL (test code=WBC) 13.9 K/mm3 6.6-12.1 RED BLOOD CELL (test code=RBC) 3.88 M/mm3 3.45-5.01 HEMOGLOBIN (test code=HGB) 11.5 g/dL 10.7-13.9 HEMATOCRIT (test code=HCT) 35.2 % 32.1-42.1 MEAN CELL VOLUME (test code=MCV) 91 fL 84.1-94.8 MEAN CELL HGB (test code=MCH) 29.6 pg 27-35 MEAN CELL HGB CONCETRATION (test code=MCHC) 32.7 gm/dL 32.2-34.1 RED CELL DISTRIBUTION WIDTH (test code=RDW) 12.5 % 12.4-16.5 PLATELET COUNT (test code=PLT) 252 K/mm3 133-385 IMMATURE PLATELET FRACTION (test code=IPF) 0.0 % 0.0-10.8 MEAN PLATELET VOLUME (test code=MPV) 11.1 fl 9.1-12.7 NEUTROPHIL % (test code=NT%) 67.9 % 56.5-79.4 LYMPHOCYTE % (test code=LY%) 21.7 % 14.3-34.3 MONOCYTE % (test code=MO%) 8.1 % 5.1-10.4 EOSINOPHIL % (test code=EO%) 1.7 % 0.1-3.0 BASOPHIL % (test code=BA%) 0.1 % 0.1-1.0 NEUTROPHIL # (test code=NT#) 9.4 K/mm3 LYMPHOCYTE # (test code=LY#) 3.0 K/mm3 MONOCYTE # (test code=MO#) 1.1 K/mm3 EOSINOPHIL # (test code=EO#) 0.23 K/mm3 BASOPHIL # (test code=BA#) 0.0 K/mm3 RBC MORPHOLOGY REQUIRED (test code=RBCM) NORMAL NORMAL PLATELET MORPHOLOGY REQUIRED (test code=PLTMR) NORMAL NORMAL - US PREG AFTER [id number] 09:37:00 Patient Name: UMU KNOWLES Unit No: [id number] EXAMS: CPT CODE : [id number] US PREG AFTER [id number] [facility] [address] [place] [id number] OBSTETRICAL ULTRASOUND REPORT Pat. Name: UMU KNOWLES Pat. No: [id number] Study Date: 01/21/2019 8: 05am , Age: 11 1990, 28 Pregnancies: 2, Para 1 LMP: 2017 GA by LMP: 19w3d GA by US: 19w5d GA Selected: 19w5d (From Known E) ALDEN: 06/12/2019 Referring MD: Tavares Subramanian Virtual Recruiter: Rosemarie Cosme RDMS CPT4: [id number] Admitting MD: DAYTON CHAPIN Hist/Ind : Scan 1: Anatomy MEASUREMENTS AGE GROWTH EVALUATION Measurement GA Range Srce %for GA Ratios ----- --------- ---- ---- ------- BPD 4.8 cm 20w4d (91b8z-48a9q) Hadl BPD 74% FL/BPD 0.67 HC 17.4 cm 19w6d (76n0w-03n0d) Hadl HC 53% FL/AC 0.23 APD 4.3 cm APD HC/AC 1.24 (1.06 - 1.25) TAD 4.6 cm TAD CI 0.83 (0.70 - 0.86) AC 14.0 cm 19w0d (40h4j-71o5a) Hadl AC 35% FL 3.2 cm 19w4d (75l2j-71o0h) Hadl FL 47% HL 3.4 cm 21w4d (54f6q-09k4p) Waldo HL 81% GA for sonogram 19w5d ( 73g1n-82x1h) Weight Estimate: based on (BPD,HC,AC,FL) Hadlock Weight: 308 gm (263-353) Hadlock : 0lbs, 10oz Cervical Length: 3.1 cm Heart Rate: 142 bpm MATERNAL ANATOMY ----- Ovaries LxHxW (cm) Right 2.1 x 1.3 x 1.4 Vol: 2.0cc Left 2.1 x 1.3 x 2.3 Vol:3.3cc -------- CLINICAL SUMMARY Type of Gestation: Amaro Intrauterine in variable presentation. size is appropriate for gestational age by weight. motion and organs seen: heart motion seen somatic activity observed body and limb movements seen Four chamber heart observed Left ventricular outflow tract (LVOT) seen Right ventricular outflow tract (RVOT) [facility] NAME: UMU KNOWLES Radiology Department PHYS: Dayton Jha DO [address] : 1989AGE: 28 SEX: Diana [place], [place] [address] LOC: DaryRAD PHONE #: [phone] EXAM DATE: STATUS: REG CLI FAX #: [phone] RAD NO: Page 1 Signed Report (CONTINUED) Patient Name : UMU KNOWLES Unit No: [id number] EXAMS: CPT CODE: [id number] US PREG AFTER TRI [id number] <Continued> Normal intracranial anatomy seen Umbilical cord insertion in fetus seen stomach, Renal Fossa, Bladder and Spine seen Three vessel umbilicalcord noted abnormalities observed: None seen at this exam Placental location: Anterior Placental maturity : Grade 1 There is no evidence of placenta previa. Amniotic fluid volume is normal. Uterus and adnexa: No significant abnormalities seen Thank you for allowing us to participate in the care of this patient. Satish Xiao M.D. Electronic Signature 01/21/2019 09:37am at 0937 Reported and signed by : Satish Xiao MD CC: Dayton Chapin DO Technologist: Rosemarie Cosme RDMS Probe: Trnscrbd D/ (936) t.[id number] Orig Print D/T: S: 2018 (936) [facility] NAME: UMU KNOWLES Radiology Department PHYS: Dayton Jha DO [address] : 1990 AGE: 28 SEX: F [place] [id number] : Diana.RAD PHONE #: EXAM DATE: 01/21/2019 STATUS: REG CLI FAX #: RAD NO: Page 2 Signed Report Patient Name: UMU KNOWLES Unit No: [id number] EXAMS: CPT CODE: [id number] US PREG AFTER TRI [id number] < Continued> [facility] NAME: UMU KNOWLES Radiology Department PHYS: ATIYA ChapinDayton ERNST [address] : 1990 AGE: 28 SEX: F [place] [address] LOC: F.RAD PHONE #: [phone] EXAM DATE: 01/21/2019 STATUS: REG CLI FAX #: [phone] RAD NO: Page 3 Signed Report
[2019-06-03] MEDS ORDERED: BENZONATATE 100 MG CAP PO ONE (23:54)
[2019-06-03] MEDS ORDERED: IPRATROPIUM BROM 0.5MG/2.5ML ONE (23:54)
[2019-06-03] MEDS ORDERED: ALBUTEROL 2.5 MG/3 ML NEB SOL ONE (23:54)
[2019-06-04] MEDS ORDERED: HYDROCODONE/CHLORPHEN 5 ML/OSYR ONE (01:29)
--- NOTE | 2019-06-04 01:33 | EDPHYS ---
Physician Documentation [facility] Name: Maryellen Mooney Age: 28 yrs Sex: Female : 1990 Arrival Date: 06/03/2019 Time: 23:03 Bed 20 Private MD: ED Physician Stone Kasper HPI: 06/03 23:45 This 28 yrs old Female presents to ER via Ambulatory with complaints of Cough.cp 23:45 The patient or guardian reports cough, that is constant, with no sputum. Onset: The cp symptoms/episode began/occurred 1 week(s) ago. Severity of symptoms: in the emergency department the symptoms are unchanged, despite home interventions. Associated signs and symptoms: Pertinent positives: chest pain, with cough, deep breaths, Pertinent negatives: diarrhea, fever, sore throat, vomiting. The patient has experienced similar episodes in the past, multiple times. 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 - Social history:: Smoking status: Patient uses tobacco products, smokes one-half pack cigarettes per day, Patient/guardian denies using alcohol, street drugs. - Ebola Screening: : Patient negative for fever greater than or equal to 101.5 degrees Fahrenheit, and additional compatible Ebola Virus Disease symptoms Patient denies exposure to infectious person Patient denies travel to an Ebola-affected area in the 21 days before illness onset. ROS: 06/04 00:00 Constitutional: Negative for body aches, chills, fever, poor PO intake. cp 00:00 Eyes: Negative for injury, pain, redness, and discharge. cp 00:00 ENT: Negative for drainage from ear(s), ear pain, sore throat, difficulty swallowing, difficulty handling secretions. 00:00 Cardiovascular: Positive for chest pain, with cough, Negative for edema, palpitations. 00:00 Respiratory: Positive for cough, with no reported sputum, shortness of breath, Negative for wheezing. 00:00 Abdomen/GI: Negative for abdominal pain, vomiting, diarrhea, constipation. 00:00 Back: Negative for pain at rest, pain with movement, radiated pain. 00:00 : Negative for urinary symptoms. 00:00 Skin: Negative for rash. 00:00 Neuro: Negative for altered mental status, headache, syncope, weakness. 00:00 All other systems are negative. Exam: 00:05 Constitutional: The patient appears in no acute distress, alert, awake, cp non-diaphoretic, non-toxic, well developed, well nourished. 00:05 Head/Face: Normocephalic, atraumatic. cp 00:05 Eyes: Periorbital structures: appear normal, Conjunctiva: normal, no exudate, no injection, Sclera: no appreciated abnormality, Lids and lashes: appear normal, bilaterally. 00:05 ENT: External ear(s): are unremarkable, Ear canal(s): are normal, clear, TM's: dullness, bilaterally, Nose: is normal, Mouth: Lips: moist, Oral mucosa: pink and intact, moist, Posterior pharynx: Airway: no evidence of obstruction, patent, Tonsils: are normal in appearance, Uvula: normal, swelling, is not appreciated, erythema, is not appreciated, exudate, is not appreciated. 00:05 Neck: ROM/movement: is normal, is supple, without pain, no range of motions limitations, no meningismus, no nuchal rigidity. 00:05 Chest/axilla: Inspection: normal, Palpation: is normal, no crepitus, no tenderness. 00:05 Cardiovascular: Rate: normal, Rhythm: regular, Edema: is not appreciated, JVD: is not appreciated. 00:05 Respiratory: the patient does not display signs of respiratory distress, Respirations: normal, no use of accessory muscles, no retractions, no splinting, no tachypnea, labored breathing, is not present, Breath sounds: decreased breath sounds, that are mild, throughout, stridor, is not appreciated, wheezing: is not appreciated. 00:05 Abdomen/GI: Exam negative for distension, guarding. 00:05 Back: pain, is absent, ROM is normal. Vital Signs: 06/03 23:25 BP 123 / 86; Pulse 93; Resp 20; Temp 97.5; Pulse Ox 95% ; Weight 79.83 kg; Height 5 ft. rr5 1 in. (154.94 cm); 06/04 01:00 BP 121 / 85; Pulse 80; Resp 18; Pulse Ox 98% on R/A; rr5 01:55 BP 100 / 76; Pulse 77; Resp 16; Temp 97.6; Pulse Ox 97% on R/A; rr5 06/03 23:25 Body Mass Index 33.25 (79.83 kg, 154.94 cm) rr5 MDM: 06/03 23:42 Patient medically screened. cp 06/04 00:00 Differential Diagnosis: Bronchitis Influenza Upper Respiratory Infection Asthma cp Exacerbation Pneumonia. 00:38 Test interpretation: by ED physician or midlevel provider: chest xray negative for cp infiltrates. 01:30 Data reviewed: vital signs, nurses notes, radiologic studies, plain films, and as a cp result, I will discharge patient. 01:30 Counseling: I had a detailed discussion with the patient and/or guardian regarding: the cp historical points, exam findings, and any diagnostic results supporting the discharge/admit diagnosis, radiology results, the need for outpatient follow up, a family practitioner, to return to the emergency department if symptoms worsen or persist or if there are any questions or concerns that arise at home. Response to treatment: the patient's symptoms have mildly improved after treatment, and as a result, I will discharge patient. 06/03 23:36 Order name: XRAY Chest Pa And Lat (2 Views) cp Administered Medications: 06/03 23:45 Drug: Tessalon Perle 200 mg Route: PO; rr5 06/04 00:45 Follow up: Response: No adverse reaction rr5 06/03 23:46 Drug: Albuterol - atroVENT (3:1) (2.5 mg - 0.5 mg) 3 ml Route: Nebulizer; rr5 06/04 00:45 Follow up: Response: No adverse reaction rr5 01:15 Drug: Tussionex Pennkinetic ER 5 ml Route: PO; rr5 02:05 Follow up: Response: No adverse reaction rr5 Disposition: 05:58 Co-signature as Attending Physician, Stone Kasper MD I agree with the assessment and kdr plan of care. Disposition: 06/04/19 01:30 Discharged to Home. Impression: Cough. - Condition is Stable. - Discharge Instructions: Asthma, Adult, Cough, Adult. - Prescriptions for Tessalon Perles 100 mg Oral Capsule - take 2 capsule by ORAL route every 8 hours As needed; 30 capsule. Albuterol Sulfate 2.5 mg /3 mL (0.083 %) Inhalation Solution for Nebulization - inhale 1 unit by NEBULIZATION route every 8 hours As needed; 1 box. Prednisone 20 mg Oral Tablet - take 2 tablet by ORAL route once daily for 5 days; 10 tablet. Albuterol Sulfate 90 mcg/actuation - inhale 1-2 puff by INHALATION route every 4-6 hours; 1 Inhaler. - Medication Reconciliation Form, Thank You Letter, Antibiotic Education, Prescription Opioid Use form. - Follow up: Private Physician; When: 2 - 3 days; Reason: Recheck today's complaints. - Problem is new. - Symptoms have improved. Signatures: Dispatcher [employer] EDRI Stone Kasper MD MD [facility] Andrew Jimenez PA PA cp Garfield Emery RN RN rr5 Corrections: (The following items were deleted from the chart) 02:10 01:30 06/04/2019 01:30 Discharged to Home. Impression: Cough. Condition is Stable. rr5 Forms are Medication Reconciliation Form, Thank You Letter, Antibiotic Education, Prescription Opioid Use. Follow up: Private Physician; When: 2 - 3 days; Reason: Recheck today's complaints. Problem is new. Symptoms have improved. cp
--- NOTE | 2019-06-04 01:33 | ER ---
Nurse's Notes [facility] Name: Maryellen Mooney Age: 28 yrs Sex: Female : 1990 Arrival Date: 06/03/2019 Time: 23:03 Bed 20 Private MD: Diagnosis: Cough Presentation: 06/03 23:25 Presenting complaint: Patient states: having dry cough started last Thursday and it rr5 progressively getting worse now. Transition of care: patient was not received from another setting of care. Onset of symptoms was May 27, 2019. Risk Assessment: Do you want to hurt yourself or someone else? Patient reports no desire to harm self or others. Initial Sepsis Screen: Does the patient meet any 2 criteria? No. Patient's initial sepsis screen is negative. Does the patient have a suspected source of infection? No. Patient's initial sepsis screen is negative. Note i got diagnosed with bronchitis that lead to pleurisy 3 months ago as verbalized by patient. Care prior to arrival: Medication(s) given: Albuterol Neb pro air 6-7x. 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 - Social history:: Smoking status: Patient uses tobacco products, smokes one-half pack cigarettes per day, Patient/guardian denies using alcohol, street drugs. - Ebola Screening: : Patient negative for fever greater than or equal to 101.5 degrees Fahrenheit, and additional compatible Ebola Virus Disease symptoms Patient denies exposure to infectious person Patient denies travel to an Ebola-affected area in the 21 days before illness onset. Screenin:26 Abuse screen: Denies threats or abuse. Denies injuries from another. Nutritional rr5 screening: No deficits noted. Tuberculosis screening: No symptoms or risk factors identified. Fall Risk None identified. Total Cox Fall Scale indicates No Risk (0-24 pts). Assessment: 23:25 General: Appears in no apparent distress. uncomfortable, Behavior is calm, cooperative, rr5 appropriate for age. Pain: Denies pain. Neuro: Level of Consciousness is awake, alert, obeys commands, Oriented to person, place, time, situation, Appropriate for age. Cardiovascular: Capillary refill < 3 seconds Patient's skin is warm and dry. 23:25 Respiratory: Reports cough that is dry, Airway is patent Respiratory effort is even, rr5 unlabored, Respiratory pattern is regular, symmetrical, Breath sounds with wheezes. GI: No signs and/or symptoms were reported involving the gastrointestinal system. : No signs and/or symptoms were reported regarding the genitourinary system. EENT: No signs and/or symptoms were reported regarding the EENT system. Derm: Skin is intact, Skin temperature is warm. Musculoskeletal: Circulation, motion, and sensation intact. Capillary refill < 3 seconds, Range of motion: intact in all extremities. 06/04 00:10 Reassessment: Patient appears in no apparent distress at this time. Patient is alert, rr5 oriented x 3, equal unlabored respirations, skin warm/dry/pink. went for chest xray via wheelchair. 01:00 Reassessment: Patient appears in no apparent distress at this time. Patient is alert, rr5 oriented x 3, equal unlabored respirations, skin warm/dry/pink. awaiting for providers review. Patient states feeling better. Patient states symptoms have improved. 01:15 Reassessment: patient keeps on coughing and complaining of dry cough. ED provider aware rr5 with order made and carried out. 01:55 Reassessment: Patient appears in no apparent distress at this time. Patient is alert, rr5 oriented x 3, equal unlabored respirations, skin warm/dry/pink. discharge instruction given and explained without complaints made. instructed not to drive. 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 Patient states feeling better. Patient states symptoms have improved. Vital Signs: 06/03 23:25 BP 123 / 86; Pulse 93; Resp 20; Temp 97.5; Pulse Ox 95% ; Weight 79.83 kg; Height 5 ft. rr5 1 in. (154.94 cm); 06/04 01:00 BP 121 / 85; Pulse 80; Resp 18; Pulse Ox 98% on R/A; rr5 01:55 BP 100 / 76; Pulse 77; Resp 16; Temp 97.6; Pulse Ox 97% on R/A; rr5 06/03 23:25 Body Mass Index 33.25 (79.83 kg, 154.94 cm) rr5 ED Course: 06/03 23:03 Patient arrived in ED. es 23:24 Garfield Emery, RN is Primary Nurse. rr5 23:25 Patient has correct armband on for positive identification. Call light in reach. Side rr5 rails up X2. Door closed. Warm blanket given. Head of bed. 23:26 Andrew Jimenez PA is PHCP. cp 23:26 Stone Kasper MD is Attending Physician. cp 23:26 Arm band placed on. rr5 23:28 Triage completed. rr5 23:54 Radiology exam delayed due to patient receiving breathing treatment at this time. kw 06/04 00:33 Patient moved to radiology via wheelchair. kw 00:33 X-ray completed. Patient tolerated procedure well. Patient moved back from radiology. kw 00:37 XRAY Chest Pa And Lat (2 Views) In Process Unspecified. EDMS 00:50 Initial Neb Treatment Given as ordered Patient was instructed and evaluated on rr5 procedure Patient tolerated procedure well without adverse effect. 02:00 No provider procedures requiring assistance completed. Patient did not have IV access rr5 during this emergency room visit. Administered Medications: 06/03 23:45 Drug: Tessalon Perle 200 mg Route: PO; rr5 06/04 00:45 Follow up: Response: No adverse reaction rr5 06/03 23:46 Drug: Albuterol - atroVENT (3:1) (2.5 mg - 0.5 mg) 3 ml Route: Nebulizer; rr5 06/04 00:45 Follow up: Response: No adverse reaction rr5 01:15 Drug: Tussionex Pennkinetic ER 5 ml Route: PO; rr5 02:05 Follow up: Response: No adverse reaction rr5 Outcome: 01:30 Discharge ordered by . cp 02:05 Discharged to home ambulatory, with friend. rr5 02:05 Condition: stable 02:05 Discharge instructions given to patient, Instructed on discharge instructions, follow up and referral plans. medication usage, Demonstrated understanding of Prescriptions given X 4. 02:10 Patient left the ED. rr5 Signatures: Dispatcher [employer] Cary Frederick Kimberlee kw Page, Corey, PA PA cp Roque, Raymond, RN RN rr5
[2019-06-04 03:38] VITALS: BP 100/76; TEMP 97.6; O2SAT 97
--- NOTE | 2019-06-04 07:37 | RAD REPORT ---
EXAM DESCRIPTION: Rakan Downey (2 Views)06/04/2019 12:36 am CLINICAL HISTORY: Cough COMPARISON: March 2019 FINDINGS: The lungs appear clear of acute infiltrate. The heart is normal size. Deformity of the left clavicle probably secondary to old trauma IMPRESSION: No acute abnormalities displayed
== END 2019-06-04 02:10 | disposition home or self-care (01) ==
LOC: ER 23:00
DX: R05 Cough (principal); J45.909 Unspecified asthma, uncomplicated; F31.9 Bipolar disorder, unspecified; F17.210 Nicotine dependence, cigarettes, uncomplicated; Z91.030 Bee allergy status; Z91.02 Food additives allergy status
CPT/HCPCS: 71046; 94640; 99284